=== PATIENT | female | born 1940 | race Caucasian/White ===

== ENCOUNTER → 2016-11-01 | Outpatient (CLI) | payer OTHER ==
[~2016-11-01] MED LIST: AFLI2INJ INJ; ALLO300T2 PO; AMLO10TA4 PO; ASCA500 PO; ASPEC81 PO; ATEN-173 PO; ATV5 PO; B-COCAP2 PO; BISO5TAB3 PO; CHOL100010 PO; CHOL1TAB76 PO; CLC100 PO; COQ10100 PO; CRS10 PO; CYAN500T13 PO; DICL1GEL28; MELATAB2 PO; MELO7.5T5 PO; MULT-190 PO; MULT-506 PO; OMEG10007 PO; OXYC-57 PO; OXYC1TAB3 PO; POTA1080; PRLSR20 PO; TOPICAL CREAM; magnesium; zinc
[2016-11-01 16:45] LABS: ALT/SGPT 38 U/L (12-78); AST/SGOT 28 U/L (15-37); BLOOD UREA NITROGEN 16 mg/dl (7-18); BUN/CREATININE RATIO 18.1 (10-20); CALCIUM 9.6 mg/dl (8.5-10.1); CARBON DIOXIDE 30 mmol/L (21-32); CHLORIDE 108 mmol/L (98-107); CREATININE 0.86 mg/dl (0.60-1.20); GLUCOSE 89 mg/dl (70-99); POTASSIUM 4.3 mmol/L (3.5-5.1); SODIUM 144 mmol/L (136-145)
[2016-11-01 16:48] LABS: ALB/GLOB RATIO 1.3 (0.9-2); ALKALINE PHOSPHATASE 85 U/L (45-117); CHOLESTEROL 160 mg/dl (0-200); CHOLESTEROL/HDL RATIO 3.1; HDL CHOLESTEROL 51 mg/dl; LDL CHOLESTEROL CALCULATED 64 mg/dl; TRIGLYCERIDES 224 mg/dl (0-150); VERY LOW DENSITY LIPOPROT CALC 45 mg/dl
[2016-11-02 07:34] LABS: ESTIMATED AVERAGE GLUCOSE 126 mg/dl; HA1C FLAG Normal (Normal)
== END | disposition home or self-care (01) ==
LOC: C.LAB 15:25
PROVIDERS: ATTEND General Practice
DX: E78.00 Pure hypercholesterolemia, unspecified (principal); R73.09 Other abnormal glucose; I25.10 Atherosclerotic heart disease of native coronary artery without angina pectoris; Z01.810 Encounter for preprocedural cardiovascular examination

== ENCOUNTER 2016-11-10 07:40 | Inpatient (IN) | payer OTHER ==
[2016-11-01 15:43] VITALS: BMI 33.0
--- NOTE | 2016-11-01 16:24 | PAT Medication Instructions ---
Service Date Nov 01, 2016. Current Home Medication List Aflibercept (Eylea), 1 DOSE INJ UD Allopurinol (Zyloprim), 150 MG PO Q2D Amlodipine Besylate (Norvasc), 0.5 MG PO BID Ascorbic Acid (Vitamin C *), 1,000 MG PO QDL Aspirin Enteric Coated (Ecotrin Or Generic *), 81 MG PO QAM Bisoprolol Fumarate (Zebeta), 5 MG PO QAM Cholecalciferol (D 2000), 2 TAB PO QDL Coenzyme Q10 (Ubidecarenone) (Co Q10 *), 1 CAP PO BID Cyanocobalamin (Vitamin B12 500MCG), 500 MCG PO QDL Diclofenac Sod (Voltaren 1% Top Gel), TID PRN for Pain Fish Oil ([place]-3), 1 CAP PO BID Lorazepam (Lorazepam), 1 DOSE PO UD PRN for Anxiety Melatonin (Melatonin Maximum Strengt), 1 TAB PO HS Meloxicam (Mobic), 15 MG PO QAM Multivitamin (Multivitamin), 1 TAB PO QDL Ocuvite Preservision (Ocuvite Preservision), 1 TAB PO BID Omeprazole (Prilosec Otc *), 20 MG PO QAM Potassium Citrate (Urocit-K), BID Rosuvastatin Calcium (Crestor *), 10 MG PO HS Vitamin B Cmplx/Vitc/Folic Ac (Nephrocaps), 1 CAP PO QDL [Topical Cream ], for FEET PAIN [magnesium], Unknown Dose QDL [zinc], Unknown Dose QDL Medication Instructions For Your Scheduled Surgery - Check with surgeon for instructions: Meloxicam (Mobic), 15 MG PO QAM - Check with surgeon/chart changer for instructions: Aspirin Enteric Coated (Ecotrin Or Generic *), 81 MG PO QAM - Check with prescribing physician for instructions: Aflibercept (Eylea), 1 DOSE INJ UD - Hold the following medications starting 11/01/16: Fish Oil ([place]-3), 1 CAP PO BID Coenzyme Q10 (Ubidecarenone) (Co Q10 *), 1 CAP PO BID - Hold the following medications 24 hours prior to surgery: [Topical Cream ], for FEET PAIN Diclofenac Sod (Voltaren 1% Top Gel), TID PRN for Pain - Hold the following medications the morning of surgery: [zinc], Unknown Dose QDL [magnesium], Unknown Dose QDL Vitamin B Cmplx/Vitc/Folic Ac (Nephrocaps), 1 CAP PO QDL Potassium Citrate (Urocit-K), BID Ocuvite Preservision (Ocuvite Preservision), 1 TAB PO BID Multivitamin (Multivitamin), 1 TAB PO QDL Cyanocobalamin (Vitamin B12 500MCG), 500 MCG PO QDL Cholecalciferol (D 2000), 2 TAB PO QDL Ascorbic Acid (Vitamin C *), 1,000 MG PO QDL - Take the following medications the morning of surgery with a sip of water: Omeprazole (Prilosec Otc *), 20 MG PO QAM Lorazepam (Lorazepam), 1 DOSE PO UD PRN for Anxiety Bisoprolol Fumarate (Zebeta), 5 MG PO QAM Amlodipine Besylate (Norvasc), 0.5 MG PO BID Allopurinol (Zyloprim), 150 MG PO Q2D - Take the following medications as scheduled the night before surgery: Rosuvastatin Calcium (Crestor *), 10 MG PO HS Potassium Citrate (Urocit-K), BID Ocuvite Preservision (Ocuvite Preservision), 1 TAB PO BID Melatonin (Melatonin Maximum Strengt), 1 TAB PO HS Lorazepam (Lorazepam), 1 DOSE PO UD PRN for Anxiety Amlodipine Besylate (Norvasc), 0.5 MG PO BID If you have any questions please call us at [phone] or [phone] or [phone]
[2016-11-01 16:37] LABS: BASO % 0.6 %; BASO ABS # 0.03 K/uL (0-0.2); COMPLETE YES; EOS % 8.2 %; HEMATOCRIT 40.8 % (37-47); IG% 0.2 %; LYMPH % 37.3 %; LYMPH ABS # 1.81 K/uL (1.2-3.4); MEAN CELL VOLUME 92.3 fL (80-100); MEAN CORPUSCULAR HEMOGLOBIN 30.3 pg (25-34); MEAN CORPUSCULAR HGB CONC 32.8 g/dl (32-36); MEAN PLATELET VOLUME 9.5 fL (7.4-10.4); MONO % 8.7 %; PLATELET COUNT 204 K/uL (130-400); RED BLOOD COUNT 4.42 M/uL (4.2-5.4); WHITE BLOOD COUNT 4.85 K/uL (4.8-10.8)
[2016-11-01 16:38] LABS: URINE APPEARANCE CLEAR (CLEAR); URINE BILIRUBIN NEG (NEG); URINE COLOR YELLOW; URINE NITRITE NEG (NEG); URINE SPECIFIC GRAVITY 1.009 (1.000-1.030); UROBILINOGEN NEG (NEG)
[2016-11-01 16:45] LABS: MANUAL MICROSCOPIC REQUIRED? NO; REVIEW REQ? NO
--- NOTE | 2016-11-01 17:07 | DIAGNOSTIC IMAGING REPORT ---
CHEST 2 VIEWS ROUTINE CLINICAL HISTORY: pat preoperative evaluation COMPARISON STUDY: No previous studies for comparison. FINDINGS: The bones soft tissues and hemidiaphragms are normal. The cardiomediastinal silhouette is normal. The lungs are clear. The pulmonary vasculature is normal. IMPRESSION: Negative chest. Electronically signed by: Luigi Fontanez M.D. 11/01/2016 5:05 PM Dictated Date/Time: 11/01/2016 5:05 PM
--- NOTE | 2016-11-03 11:03 | HISTORY & PHYSICAL EXAMINATION ---
DATE OF ADMISSION: 11/10/2016 CHIEF COMPLAINT: Low back pain and thigh and groin pain. HISTORY OF PRESENT ILLNESS: A 76-year-old female well known to myself having undergone prior lumbar surgery with lumbar fusion L3-L5 done in 2011. She initially did well following the surgery, but over the preceding years developed increasing back and leg pain that is worse with standing and ambulation. She could not tolerate or have epidural injections performed and failed to respond to physical therapy or oral medication. She had recent MRI that demonstrated L2-L3 spinal stenosis that was severe with facet arthrosis and neural compression. She had adequate decompression to the previously operated levels. She denied roshan incontinence or roshan weakness. She desires surgery. PAST MEDICAL HISTORY: History of coronary artery stenting, mitral valve prolapse, sleep apnea, osteoarthritis, low back pain, reflux, obesity, nephrolithiasis, basal cell carcinoma. PAST SURGICAL HISTORY: Surgery for kidney stone removal, multiple; history of fractured ankle, ORIF ankle replacement; shoulder surgery; knee surgery; appendectomy; cholecystectomy; lumbar fusion. ALLERGIES: IV DYE AND TRAMADOL. MEDICATIONS: Metoprolol, Voltaren Gel, allopurinol, Ativan, Prilosec, zinc, aspirin 81 mg, Mobic, Norvasc. FAMILY HISTORY: Diabetes, heart disease. SOCIAL HISTORY: The patient is nonsmoker, nondrinker per records. REVIEW OF SYSTEMS: She denies fevers, chills, night sweats, sleep disturbance, unintended weight loss, cough, shortness of breath. She denies angina or dyspnea on exertion. She had a recent echocardiogram done 07/2016, demonstrated ejection fraction of 60%. She had a recent stress test performed in 2015 that revealed negative graded test for ischemia. She has been cleared by her PCP for surgery. PHYSICAL EXAMINATION: GENERAL: The patient is a pleasant female, appears stated age. She stands easily, ambulates with a stooped posture and deliberate gait. She answers questions appropriately, has normal affect. NECK: Evaluation reveals full cervical range of motion with no lymphadenopathy. HEART: Auscultation of the heart reveals a regular rate and rhythm. LUNGS: Clear to auscultation bilaterally. EXTREMITIES: Evaluation of extremities reveals 5/5 strength in lower extremities in all motor groups with intact sensation to light touch but some reported slight sensory disturbance to light touch in the right anterior thigh. She has nontender hip range of motion of the thighs bilaterally and internal rotation. She has negative straight leg raise. She has palpable peripheral pulses in the lower extremities. There is no edema. She has diminished DTRs. No clonus at the ankles and lower extremities. BACK: Inspection of the spine reveals prior lumbar scar with no obvious scoliosis or spasm. ASSESSMENT AND PLAN: The patient has had prior successful lumbar fusion L3-L5 with adjacent level disease and spinal stenosis causing frequent symptoms. Given that she has been cleared medically and desires surgery and her ongoing symptoms, plan to proceed with L2-L3 decompression and extension of fusion with possible hardware removal L3-L5.
[2016-11-10] VITALS (9 sets, daily range): BP systolic 94–130; BP diastolic 53–78; PULSE 50–68; TEMP 36.3–36.5; O2SAT 95–100; Ht 154.9 cm; Wt 78.9 kg
[~2016-11-10] VITALS: Ht 154.9 cm; Wt 78.9 kg
[~2016-11-10 07:40] MED LIST changes: -ATEN-173 PO; +CEFAZOLIN 2000 MG/60 ML D5W IV SCH; -CHOL100010 PO; -CLC100 PO; +CeleBREX 200 MG CAP PO SCH; +LACTATED RINGER'S 1000ML 1,000 ML IV SCH; -OXYC-57 PO; -OXYC1TAB3 PO; +PREGABALIN 75 MG CAP PO SCH
[2016-11-10] MEDS ORDERED: MIDAZOLAM HCL 1 MG/ML 2ML VIAL ONE (08:37)
[2016-11-10] MEDS ORDERED: FENTANYL CITRATE INJ 50 MCG/1 ML 2 ML VIAL ONE (08:37)
[2016-11-10] MEDS ORDERED: HYDROmorphone INJ 2 MG/ML SYR/VIAL ONE (08:37)
--- NOTE | 2016-11-10 09:14 | History & Physical Bridge Note ---
H&P Re-Evaluation Bridge Note: I have examined the patient, reviewed the History & Physical and in the interval since the performance of the History & Physical I have noted the following changes of clinical significance: No changes noted
[2016-11-10] MEDS ORDERED: FENTANYL CITRATE INJ 50 MCG/1 ML 2 ML VIAL IV PRN (09:30)
[2016-11-10] MEDS ORDERED: EpHEDrine SULFATE INJ 50 MG/ML AMP IV PRN (09:30)
[2016-11-10] MEDS ORDERED: MoRPHine SULFATE 10 MG/ML CARP/VIAL IV PRN (09:30)
[2016-11-10] MEDS ORDERED: ONDANSETRON INJ 2 MG/ML 2 ML VIAL IV PRN ×2 (09:30→11:45)
[2016-11-10] MEDS ORDERED: ATROPINE SULFATE 0.1 MG/ML 5ML SYR IV PRN (09:30)
[2016-11-10] MEDS ORDERED: THROMBIN FOR SOLN 20000 UNIT KIT ONE (09:42)
[2016-11-10] MEDS ORDERED: BUPIVACAINE/EPINEPHRINE 0.5% MPF 1:200,000 30 ML VIAL ONE (09:43)
[2016-11-10] MEDS ORDERED: BACITRACIN 50000 UNIT VIAL ONE (09:43)
[2016-11-10] MEDS ORDERED: HEPARIN SOD (PORCINE) 1000 UNIT/ML 10 ML VIAL ONE (09:43)
[2016-11-10] MEDS ORDERED: THROMBIN 5000 UNITS KIT ONE (09:43)
[2016-11-10] MEDS ORDERED: LIDOCAINE HCL 2% 2 ML VIAL (20MG/ML) ONE (10:37)
[2016-11-10] MEDS ORDERED: ROCURONIUM BROMIDE 10 MG/ML 5 ML VIAL ONE (10:37)
[2016-11-10] MEDS ORDERED: ONDANSETRON INJ 2 MG/ML 2 ML VIAL ONE (10:37)
[2016-11-10] MEDS ORDERED: NEOSTIGMINE METHYLSULFATE 5 MG/5 ML SYR ONE (10:37)
[2016-11-10] MEDS ORDERED: PROPOFOL IV EMULSION 10 MG/ML 20 ML VIAL IV ONE (10:37)
[2016-11-10] MEDS ORDERED: DEXAMETHASONE SOD INJ 4 MG/ML VIAL ONE (10:37)
[2016-11-10] MEDS ORDERED: GLYCOPYRROLATE INJ 0.2 MG/ML VIAL ONE ×2 (10:37→12:11)
[2016-11-10] MEDS ORDERED: SODIUM CHLORIDE 0.9% INJ 10 ML VIAL ONE (10:41)
[2016-11-10] MEDS ORDERED: LARYING-O-JET KIT (LTA) ONE ×2 (10:51)
[2016-11-10] MEDS ORDERED: ACETAMINOPHEN 500 MG TAB PO PRN (11:45)
[2016-11-10] MEDS ORDERED: BISACODYL 10 MG SUPP PR PRN (11:45)
[2016-11-10] MEDS ORDERED: LORAZEPAM INJ 0.5 MG in SYRINGE 0 ML IV PRN (11:45)
[2016-11-10] MEDS ORDERED: NALOXONE HCL 0.4 MG/1 ML VIAL/CARP IV PRN (11:45)
[2016-11-10] MEDS ORDERED: METOCLOPRAMIDE HCL INJ 5 MG/ML 2 ML VIAL IV PRN (11:45)
[2016-11-10] MEDS ORDERED: MAGNESIUM HYDROXIDE SUSP 30 ML UDC PO PRN (11:45)
[2016-11-10] MEDS ORDERED: PROMETHAZINE HCL INJ 12.5 MG in SODIUM CHLORIDE 0.9% 50ML 50 ML IV PRN (11:45)
[2016-11-10] MEDS ORDERED: ALUMINUM/MAGNESIUM SUSP 30 ML UDC PO PRN (11:45)
[2016-11-10] MEDS ORDERED: SOD PHOSPHATE/SOD BIPHOSPHATE ENEMA 132 ML BTL PR PRN (11:45)
[2016-11-10] MEDS ORDERED: FAMOTIDINE 20 MG TAB PO PRN (11:45)
--- NOTE | 2016-11-10 11:45 | [facility] Post Operative Brief Note ---
Immediate Operative Summary Operative Date Nov 10, 2016. Pre-Operative Diagnosis severe L2-3 spinal stenosis with facet arthrosis and neural compression Post-Operative Diagnosis severe L2-3 spinal stenosis with facet arthrosis and neural compression Procedure(s) Performed L2-L3 Decompression Posterior Fusion, Extension of Fusion Connecting to L2, Hardware Removal, Infuse, Arteriocyte, Autograft Surgeon Dr. Robert Tse Jacker Feeder Surgeon(s) Jeremiah Srinivasan PA-C Estimated Blood Loss 150mL Findings dict Specimens A. explanted hardware
[2016-11-10] MEDS ORDERED: FLOSEAL HEMOSTATIC MATRIX 10ML TOP ONE (11:50)
--- NOTE | 2016-11-10 12:02 | DIAGNOSTIC IMAGING REPORT ---
LUMBAR SPINE, INTRAOPERATIVE FLUOROSCOPY HISTORY: L2-L3 decompression and fusion. FLUOROSCOPY TIME: 8 seconds. FINDINGS: Intraoperative fluoroscopy was provided for the lumbar spine. 2 fluoroscopic spot images were obtained. Posterior decompression fusion at L2-L5 with pedicle screws and rods. The L2-L3 decompression/fusion is new from the 2012 examination. The hardware appears intact. IMPRESSION: Fluoroscopy provided for a L2-L3 posterior decompression and fusion. Electronically signed by: Junito Kaiser M.D. 11/10/2016 12:01 PM Dictated Date/Time: 11/10/2016 12:00 PM
[2016-11-10] MEDS ORDERED: EpHEDrine SULFATE 50MG/5ML SYR ONE (12:11)
--- NOTE | 2016-11-10 13:28 | Anesthesiology Progress Note ---
Anesthesia Post Op Note Date & Time Nov 10, 2016 at 13:29 Vital Signs Pain Intensity: 2 Vital Signs Past 12 Hours Date Time Temp Pulse Resp B/P (MAP) Pulse Ox O2 Delivery O2 Flow Rate FiO2 11/10/16 12:50 50 16 115/63 100 Nasal Cannula 3 11/10/16 12:40 36.2 50 16 98/56 100 Nasal Cannula 3 11/10/16 12:30 55 16 119/57 100 Nasal Cannula 3 11/10/16 12:20 58 16 115/64 100 Mask 4 11/10/16 12:10 63 16 128/57 100 Mask 10 11/10/16 12:00 36.4 61 16 127/59 100 Mask 10 11/10/16 08:11 36.5 62 18 130/66 95 Room Air Notes Mental Status: alert / awake / arousable, participated in evaluation Pt Amnestic to Procedure: Yes Nausea / Vomiting: adequately controlled Pain: adequately controlled Airway Patency, RR, SpO2: stable & adequate BP & HR: stable & adequate Hydration State: stable & adequate Anesthetic Complications: no major complications apparent
--- NOTE | 2016-11-10 13:43 | OPERATIVE REPORT ---
DATE OF OPERATION: 11/10/2016 PREOPERATIVE DIAGNOSES: 1. Previous L3-5 instrumented fusion. 2. L2-3 spinal stenosis. 3. L2-3 degenerative disc disease. POSTOPERATIVE DIAGNOSIS: Same. PROCEDURES: 1. L2 laminectomy with bilateral L2-3 medial facetectomies. 2. Nonsegmental pedicle screw instrumentation-bilateral L2. 3. Posterolateral fusion [id number], Infuse BMP on a collagen sponge, tricalcium phosphate, local bone, bone putty, bone marrow aspirate. 4. Right iliac crest bone marrow aspiration, stem cell concentration and application of bone graft. 5. Bilateral L3-5 radha removal. SURGEON: Dr. Tse. CLEANING MAID: Jeremiah Srinivasan PA-C. Please note he participated in all portions of the procedure and was critical for performance of procedure, participated in positioning, prepping, draping, retraction, and wound closure. ANESTHESIA: General endotracheal anesthesia. COMPLICATIONS: None. ESTIMATED BLOOD LOSS: 150 mL IV FLUIDS: Per anesthesia record. PROCEDURE: After identification of the patient and operative level, she was brought to the OR where she underwent induction of general anesthesia. She was then positioned prone on Javier OR table. All bony prominences were well padded. Care was taken to avoid pressure on the periorbital area. Lumbosacral area was sterilely prepped and draped in usual fashion. Antibiotics were administered. Time-out was performed. Level was confirmed. Skin incision was infiltrated with Marcaine with epinephrine. I made skin incision from spinous process of L1-L5, exposed the posterior hardware, posterior elements out to the tips of the transverse process, explored the fusion mass. The fusion was solid from L3-5. I removed a crosslink, endcaps and rods from L3-5. Confirmed there was no motion through these segments. I then did an L2 laminectomy, removal of ligamentum flavum and bilateral L2-3 medial facetectomies. I then completed decompression with Kerrisons and confirmed the nerve roots were decompressed at L2-3 bilaterally. Following completion of decompression, I placed pedicle screws bilaterally at L2. I did have a small crack in the pedicle of L2 on the right showing first attempted screw placement. I removed this tap, identified the breech, removed any loose fragments that were next to the nerve root and then redirected the screw with an in and out and in trajectory to avoid the medial breech. This pedicle was very small in size and sustained this approach. On the left side, I was able to place a routine pedicle screw and had good purchase. Those screws were acceptably fixed in position following insertion and fluoroscopy confirmed good position. I then lowered the Antonio frame to restore lordosis and then reapplied new rods from L2-5 bilaterally. The previous screws had been Globus. Screws were placed at L2 were K2M. I applied 5.5 mm rods from L2-L5 screws, applied Globus endcaps and then Globus screws were well fixed and K2M endcaps from the K2M screws which had just been placed . I then final tightened all end caps, I placed a crosslink between L2 and 3, decorticated the endplates at L2-3 and then fusion using the transverse process of L2-3 and the fusion mass at L3-4 and then applied bone graft from L2-3 bilaterally. Bone graft consisted of the aforementioned constitutes. Please note, I did aspirate bone marrow from the right iliac crest via separate stab incision with a Jamshidi needle, concentrated with stem cell concentration system and applied to bone graft cdl company driver. Prior to bone grafting, we did irrigate with bacitracin solution. I then confirmed hemostasis and closed in layered fashion over ZHEN drain. All sponge and needle counts were correct at the end of the case. I attest to the content of the Intraoperative Record and any orders documented therein. Any exception s are noted below.
[2016-11-10] MEDS: SODIUM CHLORIDE 0.9% 1000ML 1,000 ML IV SCH (14:34)
[2016-11-10] MEDS: HYDROmorphone INJ 1 MG/ML SYR IV PRN ×2 (15:42→21:40)
[2016-11-10] MEDS: DEXAMETHASONE INJ 6 MG in SYRINGE 0 ML IV SCH (18:00)
[2016-11-10] MEDS: CEFAZOLIN IV 1,000 MG in DEXTROSE 5% 50ML 50 ML IV SCH (18:22)
[2016-11-10] MEDS: DOCUSATE SODIUM/SENNA 50/8.6MG TAB PO SCH (21:04)
[2016-11-10] MEDS: AMLODIPINE BESYLATE 5 MG TAB PO SCH (21:04)
[2016-11-11] MEDS: CEFAZOLIN IV 1,000 MG in DEXTROSE 5% 50ML 50 ML IV SCH (01:35)
[2016-11-11] MEDS: DEXAMETHASONE INJ 6 MG in SYRINGE 0 ML IV SCH ×2 (01:35→10:49)
[2016-11-11] MEDS: SODIUM CHLORIDE 0.9% 1000ML 1,000 ML IV SCH (01:35)
[2016-11-11 03:43] VITALS: BP 112/67; PULSE 59; TEMP 36.2; O2SAT 97
[2016-11-11] MEDS: HYDROmorphone INJ 1 MG/ML SYR IV PRN (03:49)
[2016-11-11] MEDS ORDERED: NURSING VERBAL MED ORDER ONE (06:00)
[2016-11-11 06:44] LABS: BASO % 0.1 %; BASO ABS # 0.01 K/uL (0-0.2); COMPLETE YES; HEMATOCRIT 31.9 % (37-47); IG% 0.2 %; LYMPH % 8.9 %; LYMPH ABS # 0.77 K/uL (1.2-3.4); MEAN CELL VOLUME 90.6 fL (80-100); MEAN CORPUSCULAR HEMOGLOBIN 29.8 pg (25-34); MEAN CORPUSCULAR HGB CONC 32.9 g/dl (32-36); MONO % 9.6 %; NEUT % 81.2 %; PLATELET COUNT 172 K/uL (130-400); RED BLOOD COUNT 3.52 M/uL (4.2-5.4); WHITE BLOOD COUNT 8.68 K/uL (4.8-10.8)
[2016-11-11 07:04] VITALS: BP 109/61; PULSE 59; TEMP 36.6; O2SAT 97
[2016-11-11 07:22] LABS: BUN/CREATININE RATIO 19.5 (10-20); CALCIUM 8.2 mg/dl (8.5-10.1); CREATININE 0.8 mg/dl (0.60-1.20); POTASSIUM 4.5 mmol/L (3.5-5.1)
--- NOTE | 2016-11-11 07:53 | Anesthesiology Progress Note ---
Anesthesia Post Op Note Date & Time Nov 11, 2016 at 07:53 Vital Signs Pain Intensity: 6.0 Vital Signs Past 12 Hours Date Time Temp Pulse Resp B/P (MAP) Pulse Ox O2 Delivery O2 Flow Rate FiO2 11/11/16 07:04 36.6 59 18 109/61 (77) 97 Room Air 11/11/16 03:43 36.2 59 16 112/67 (82) 97 Room Air 11/11/16 00:00 Room Air CPAP 11/10/16 22:50 36.3 61 16 100/61 (74) 95 CPAP 11/10/16 20:00 36.3 68 16 112/58 (76) 97 Nasal Cannula 2.0 Notes Mental Status: alert / awake / arousable, participated in evaluation Pt Amnestic to Procedure: Yes Nausea / Vomiting: adequately controlled Pain: adequately controlled Airway Patency, RR, SpO2: stable & adequate BP & HR: stable & adequate Hydration State: stable & adequate Anesthetic Complications: no major complications apparent
[2016-11-11] MEDS: OXYCODONE HCL IR 5 MG TAB (IMMEDIATE RELEASE) PO PRN ×3 (08:15→21:48)
[2016-11-11] MEDS: BISOPROLOL FUMARATE 5 MG TAB PO SCH (08:16)
[2016-11-11] MEDS: ASPIRIN 81 MG ECTAB PO SCH (08:16)
[2016-11-11] MEDS: AMLODIPINE BESYLATE 5 MG TAB PO SCH ×2 (08:17→22:06)
[2016-11-11] MEDS: PANTOprazole SOD 40 MG TAB PO SCH (08:17)
[2016-11-11] MEDS ORDERED: ALLOPURINOL 300 MG TAB PO SCH (09:00)
[2016-11-11] MEDS: LORAZEPAM 0.5 MG TAB PO PRN (10:49)
[2016-11-11 10:57] VITALS: BP 113/63; PULSE 64; TEMP 36.7; O2SAT 97
--- NOTE | 2016-11-11 11:46 | Orthopedic Progress Note ---
Orthopedic Progress Note Date of Service Nov 11, 2016. Subjective Post OP Day: 1 Reports: feeling well, pain controlled w PO medications, Denies: complaints, chest pain, SOB, nausea / vomiting, light headedness, calf pain, using OUTREACH CONSULTANT Objective calves soft nontender, N/V intact, dressing C/D/I, A&O x3, hemovac drainage Date Time Temp Pulse Resp B/P (MAP) Pulse Ox O2 Delivery O2 Flow Rate FiO2 11/11/16 10:57 36.7 64 19 113/63 (80) 97 Room Air 11/11/16 07:50 Room Air 11/11/16 07:04 36.6 59 18 109/61 (77) 97 Room Air 11/11/16 03:43 36.2 59 16 112/67 (82) 97 Room Air 11/11/16 00:00 Room Air CPAP 11/10/16 22:50 36.3 61 16 100/61 (74) 95 CPAP 11/10/16 20:00 36.3 68 16 112/58 (76) 97 Nasal Cannula 2.0 11/10/16 16:15 36.5 61 16 102/65 (77) 99 Nasal Cannula 2.0 11/10/16 15:35 97 Nasal Cannula 2.0 11/10/16 15:15 36.3 57 18 114/78 (90) 97 Nasal Cannula 2.0 11/10/16 14:15 36.5 59 16 103/53 (70) 99 Nasal Cannula 2.0 11/10/16 13:47 50 19 113/69 (84) 100 Nasal Cannula 2.0 11/10/16 13:10 Nasal Cannula 2.0 11/10/16 13:10 36.5 54 16 94/56 (69) 95 Nasal Cannula 2.0 11/10/16 13:10 Nasal Cannula 2.0 11/10/16 12:50 50 16 115/63 100 Nasal Cannula 3 11/10/16 12:40 36.2 50 16 98/56 100 Nasal Cannula 3 11/10/16 12:30 55 16 119/57 100 Nasal Cannula 3 11/10/16 12:20 58 16 115/64 100 Mask 4 11/10/16 12:10 63 16 128/57 100 Mask 10 11/10/16 12:00 36.4 61 16 127/59 100 Mask 10 Laboratory Results 24 Hours: Test 11/11/16 06:36 White Blood Count 8.68 K/uL Red Blood Count 3.52 M/uL Hemoglobin 10.5 g/dL Hematocrit 31.9 % Mean Corpuscular Volume 90.6 fL Mean Corpuscular Hemoglobin 29.8 pg Mean Corpuscular Hemoglobin Concent 32.9 g/dl Platelet Count 172 K/uL Mean Platelet Volume 9.0 fL Neutrophils (%) (Auto) 81.2 % Lymphocytes (%) (Auto) 8.9 % Monocytes (%) (Auto) 9.6 % Eosinophils (%) (Auto) 0.0 % Basophils (%) (Auto) 0.1 % Neutrophils # (Auto) 7.05 K/uL Lymphocytes # (Auto) 0.77 K/uL Monocytes # (Auto) 0.83 K/uL Eosinophils # (Auto) 0.00 K/uL Basophils # (Auto) 0.01 K/uL Assessment & Plan Assessment: stable, cant take steroids, will add toradol, d/c tomorrow?
[2016-11-11] MEDS: CYANOCOBALAMIN 500 MCG TAB (VIT B-12) PO SCH (12:47)
[2016-11-11 15:20] VITALS: BP 116/73; PULSE 59; TEMP 36.6; O2SAT 97
[2016-11-11] MEDS: KETOROLAC TROMETHAMINE 15 MG/ML VIAL IV PRN ×2 (15:33→21:47)
[2016-11-11 19:55] VITALS: BP 115/72; PULSE 60; TEMP 36.7; O2SAT 91
[2016-11-11] MEDS: DOCUSATE SODIUM/SENNA 50/8.6MG TAB PO SCH (22:07)
[2016-11-11 22:47] VITALS: BP 126/64; PULSE 66; TEMP 36.8; O2SAT 93
[2016-11-12] MEDS: OXYCODONE HCL IR 5 MG TAB (IMMEDIATE RELEASE) PO PRN ×3 (02:38→15:16)
[2016-11-12] MEDS: LORAZEPAM 0.5 MG TAB PO PRN (02:40)
[2016-11-12] MEDS: POLYETHYLENE (MIRALAX) 17 GM PACK PO SCH ×2 (05:33→12:15)
[2016-11-12 06:18] VITALS: BP 124/70; PULSE 69; TEMP 36.6; O2SAT 98
[2016-11-12 07:31] VITALS: BP 116/53; PULSE 72; TEMP 37; O2SAT 93
[2016-11-12] MEDS: PANTOprazole SOD 40 MG TAB PO SCH (07:42)
[2016-11-12] MEDS: BISOPROLOL FUMARATE 5 MG TAB PO SCH (07:42)
[2016-11-12] MEDS: AMLODIPINE BESYLATE 5 MG TAB PO SCH (07:43)
[2016-11-12] MEDS: ASPIRIN 81 MG ECTAB PO SCH (07:43)
[2016-11-12] MEDS: KETOROLAC TROMETHAMINE 15 MG/ML VIAL IV PRN (07:47)
[2016-11-12] MEDS ORDERED: ALLOPURINOL 300 MG TAB PO SCH (09:00)
[2016-11-12] MEDS ORDERED: OXYC1TAB3 PO (11:21)
--- NOTE | 2016-11-12 11:24 | Discharge Instructions ---
Discharge Instructions Date of Service Nov 12, 2016. Admission Reason for Admission: Lumbar Spinal Stenosis Discharge Discharge Diagnosis / Problem: spinal stenosis Discharge Goals Goal(s): Decrease discomfort Activity Recommendations Activity Limitations: per Instructions/Follow-up section Lifting Limitations: no more than 5 pounds . Instructions / Follow-Up Instructions / Follow-Up ACTIVITY RECOMMENDATIONS: SELF CARE INSTRUCTIONS AFTER THORACIC/LUMBAR FUSIONS 1. You may walk to your tolerance. It is good exercise for your legs and back. Expect some back and intermittent leg aches and pains. 2. You may perform "counter-top" level activities (make a sandwich, celena with a project, etc.). 3. No bending or lifting of more than 10 pounds or back twisting of any nature (roll like a log when turning in bed). 4. You may ride in a car for 20-30 minutes at a time. No driving until after your first visit with your doctor. 5. Frequent changes of position and restricting sitting to 30 minutes at a time will help limit the amount of back spasms and stiffness you may experience. 6. You may discontinue the use of ambulatory aids (cane, crutches, etc.) once your strength and confidence allow. 7. You may insurance follow up representative the shower and let water strike your incision when you arrive home at least once daily. Do not take a tub bath, sit in a hot tub or go into a swimming pool until after your first recheck in the office. SPECIAL CARE INSTRUCTIONS: VERY IMPORTANT TO READ AND REVIEW A. Your surgical incision has been closed with a cosmetic suture under the skin that will dissolve in about 6 weeks. In 14 days, you can use a pair of clean scissors and cut the suture that is left outside of the skin at the ends of your incision. 1. The small skin tapes can be removed 7 days after surgery if they have not fallen off by that point. 2. You may keep the wound open to air as much as possible to promote healing after post-op day number 5 unless told otherwise by your doctor. 3. If you think the wound looks like it is becoming infected (redness or worsening drainage) and/or you are experiencing fever, chill or worsening back pain and muscle spasms, contact the office so that we may evaluate you as soon as possible. B. Complications are uncommon, but please contact us if you have any signs or symptoms of: 1. wound infection (fever higher than 102.5 degrees F, redness, separation of wound, drainage, or increasing pain from the incision) 2. blood clots in legs (pain, swelling, redness and warmth in legs) 3. urinary tract infection (fever higher than 102.5 degrees F, burning upon urination or increased frequency of urination) 4. nerve problems (inability to walk on your toes or heels, numbness, loss of bowel or bladder control) 5. any other symptoms that concern you C. Please call the office at if you have any concerns or questions about your operation or recovery. D. No smoking! Smoking drastically decreases the chance of a solid fusion. E. Do not take any anti-inflammatory medications (Indocin, Advil, Motrin, Aspirin, Naprosyn, etc.) as these may inhibit the chance of a solid fusion. Tylenol is okay to take for pain. MANAGING PAIN AFTER SPINAL SURGERY 1. Narcotic medication is intended for short-term use and will be provided for surgical pain. Surgical pain usually lasts for a period of 4-6 weeks. Narcotic medication includes Percocet, Vicodin, Darvocet, Tylenol #3 or Lortab. 2. Longer-term pain is more appropriately treated with non-narcotic medication such as Tylenol ES. 3. Muscle spasm is not appropriately treated with narcotics. Muscle relaxers such as Soma, Flexeril or Skelaxin can be used along with Tylenol ES. 4. Remember that we all live with some "aches and pains". This is not unusual or uncommon after an injury or as we get older. a. Back pain is expected and may include muscle spasms for 4 to 6 weeks after surgery. The pain should gradually improve. If the pain worsens for no apparent reason, please contact the office. b. Intermittent leg pain may also be experienced and should not be concerned about unless it worsens for no apparent reason. If so, please contact the office. 5. We will provide appropriate medication within the normal guidelines of their prescribed use. We will also be very cautious and aware of potential abuse and extended duration of patients' medication needs. a. Pain medications are for your comfort and to assist with sleep and rest so that the tissue can heal. They are not provided in order to return to normal activity and should not be used through the day. To do so or worsening pain at night can result from ongoing tissue damage and development of tolerance to the prescribed medicine. 6. Please allow 2-3 days to process refills. Prescriptions will not be mailed but must be picked up at the office. FOLLOW UP VISIT: Keep your scheduled follow-up appointment. Any questions, please call the office at . Current Hospital Diet Patient's current hospital diet: Regular Diet Discharge Diet Recommended Diet: Regular Diet Procedures Procedures Performed: L2-L3 Decompression Posterior Fusion, Extension of Fusion Connecting to L2, Hardware Removal, Infuse, Arteriocyte, Autograft Pending Studies Studies pending at discharge: no Laboratory Results Hemoglobin A1c Test 11/01/16 16:11 Range/Units Estimated Average Glucose 126 mg/dl Hemoglobin A1c 6.0 H 4.5-5.6 % Lipid Panel Test 11/01/16 16:11 Range/Units Triglycerides Level 224 H 0-150 mg/dl Cholesterol Level 160 0-200 mg/dl HDL Cholesterol 51 mg/dl Cholesterol/HDL Ratio 3.1 LDL Cholesterol, Calculated 64 mg/dl Medical Emergencies . Who to Call and When: Medical Emergencies: If at any time you feel your situation is an emergency, please call 911 immediately. . Non-Emergent Contact Non-Emergency issues call your: Surgeon Call Non-Emergent contact if: wound has increased drainage, wound has increased redness, wound has increased pain . "Provider Documentation" section prepared by Miguel Luna. . VTE Core Measure Inpt VTE Proph given/why not?: John Lange
[2016-11-12 12:03] VITALS: BP 116/53; PULSE 72; TEMP 37; O2SAT 93
[2016-11-12 12:30] VITALS: O2SAT 93
[2016-11-12] MEDS: CYANOCOBALAMIN 500 MCG TAB (VIT B-12) PO SCH (12:46)
--- NOTE | 2016-11-12 14:46 | PROGRESS NOTE ---
DATE: 11/12/2016 SUBJECTIVE: Ms. Armijo is here postoperative day #2. She states she is doing okay this morning. She is still having a bit of in the way of back pain, has had to use her oral pain medication. She is tolerating p.o. just fine. She has been up and walking with physical therapy and has done laps around the nurses' station and at this point would like to go home. PHYSICAL EXAMINATION: VITAL SIGNS: She is afebrile. Vital signs are stable. ZHEN drain is in place and has placed 30 mL out this shift. ABDOMEN: Soft and nontender. EXTREMITIES: Calves are supple and nontender. Dressing is clean, dry, and intact. ASSESSMENT: Patient is stable postop day #2. PLAN: At this point, she is doing well. She would like to go home, which I believe is reasonable. Reviewed her discharge instructions, her medications and restrictions. She is to follow up with our office in approximately 2 weeks or sooner if she develops any increased pain, fevers, chills or drainage from the incision.
--- NOTE | 2016-11-16 10:05 | Discharge Summary ---
Orthopedic Discharge Summary Admission Date/Reason Nov 10, 2016 at 09:30 Lumbar Spinal Stenosis. Discharge Date/Disposition Nov 12, 2016 Home Diagnosis Principal Diagnosis: same Procedure(s) Performed lumbar decompression/fusion Medication Reconciliation New Medications: Oxycodone Immediate Rel Tab (Roxicodone Ir) 5 Mg Tab 1-2 TAB PO Q4H PRN for Severe Pain, #90 TAB Continued Medications: Aflibercept (Eylea) 2 Mg/0.05 Ml Inj 1 DOSE INJ UD RECEIVES EVERY 6 WEEKS ...FOR FORM OF RETINOPATHY / MACULAR DEGENERATION... Allopurinol (Zyloprim) 300 Mg Tab 150 MG PO Q2D, TAB ROTATES 300MG ONE DAY, 150 NEXT DAY.... Amlodipine Besylate (Norvasc) 10 Mg Tab 0.5 MG PO BID, TAB Ascorbic Acid (Vitamin C *) 500 Mg Tab 1000 MG PO QDL, TAB Aspirin Enteric Coated (Ecotrin Or Generic *) 81 Mg Ectab 81 MG PO QAM PT ENCOURAGED TO VERIFY WITH SURGEON INSTRUCTIONS FOR PRE OP PURPOSE Bisoprolol Fumarate (Zebeta) 5 Mg Tab 5 MG PO QAM, TAB Cholecalciferol (D 2000) 2,000 Unit Tab 2 TAB PO QDL Coenzyme Q10 (Ubidecarenone) (Co Q10 *) 100 Mg Cap 1 CAP PO BID, CAP Cyanocobalamin (Vitamin B12 500MCG) 500 Mcg Tab 500 MCG PO QDL, TAB Diclofenac Sod (Voltaren 1% Top Gel) Gel TID PRN for Pain Fish Oil ([place]-3) 1 Ea Cap 1 CAP PO BID, CAP Lorazepam (Lorazepam) 0.5 Mg Tab 1 DOSE PO UD PRN for Anxiety Melatonin (Melatonin Maximum Strengt) 5 Mg Tab 1 TAB PO HS for 30 Days, #30 TAB 1 Refill Multivitamin (Multivitamin) Tab 1 TAB PO QDL, TAB Ocuvite Preservision (Ocuvite Preservision) 1 Tab Tab 1 TAB PO BID, TAB Omeprazole (Prilosec Otc *) 20 Mg Tabcr 20 MG PO QAM Potassium Citrate (Urocit-K) 10 Meq Tab BID Rosuvastatin Calcium (Crestor *) 10 Mg Tab 10 MG PO HS, TAB Vitamin B Cmplx/Vitc/Folic Ac (Nephrocaps) 1 Cap Cap 1 CAP PO QDL, CAP [magnesium] () Unknown Strength Unknown Dose QDL [Topical Cream ] () PRN for FEET PAIN TOPIR/CELECOX/GABAP/LIDOC(28G), 2.5/2/6/3 - APPLY 1-2 PUMPS TO AFFECTED AREA 3-4 X DAILY PRN [zinc] () Unknown Strength Unknown Dose QDL Discontinued Medications: Meloxicam (Mobic) 7.5 Mg Tab 15 MG PO QAM, TAB PT ENCOURAGED TO CONTACT DR VELÁZQUEZ OFFICE FOR PRE OP INSTRUCTIONS Admission Physical Exam As per Admitting History & Physical. Hospital Course The patient was admitted for elective lumbar surgery and tolerated the procedure without complication. They were transferred to the floor where they showed adequate pain control, mobility, and had return of bowel function. They were discharged in stable condition. Discharge Instructions Please refer to the electronic Patient Visit Report (Discharge Instructions) for additional information.
== END 2016-11-12 15:45 | disposition home or self-care (01) | DRG 460 ==
LOC: C.ACU 07:40 → C.MSN 09:30 → ENRESERV 12:44
PROVIDERS: ADMIT Orthopaedic Surgery Orthopaedic Surgery of the Spine; ATTEND Orthopaedic Surgery Orthopaedic Surgery of the Spine
PROC: 0SG0071 Fusion of Lumbar Vertebral Joint with Autologous Tissue Substitute, Posterior Approach, Posterior Column, Open Approach (ICD-10-PCS; principal; 2016-11-10 09:00)
PROC: 0SP00AZ Removal of Interbody Fusion Device from Lumbar Vertebral Joint, Open Approach (ICD-10-PCS; principal; 2016-11-10 09:00)
DX: M48.06 Spinal stenosis, lumbar region (principal); M51.36 Other intervertebral disc degeneration, lumbar region; K21.9 Gastro-esophageal reflux disease without esophagitis; E66.9 Obesity, unspecified; Z68.32 Body mass index [BMI] 32.0-32.9, adult; Z79.82 Long term (current) use of aspirin; Z79.899 Other long term (current) drug therapy; Z95.5 Presence of coronary angioplasty implant and graft; Z98.1 Arthrodesis status

== ENCOUNTER 2020-02-11 08:37 | Inpatient (IN) ==
--- NOTE | 2020-01-08 14:13 | Anesthesiology Consultation ---
Date of Service January 08, 2020 Assessment & Plan (1) Encounter for pre-operative examination: COVID Status: As of 01/07 assessment, patient denies travel to endemic area, known exposure/sick contacts in the past 30 days (pt was exposed to asymptomatic COVID + people at a family reunion > 1 month ago; she never developed symptoms) or symptoms of COVID19. Patient instructed that they and their household members must follow strict social distancing guidelines, wear a mask in public and avoid travel for 14 days prior to surgery. Preoperative COVID19 testing to be completed prior to surgery per surgeon's arrangements. Patient made aware to self-isolate as much as possible between COVID testing and surgery. CASE CANCELED. Chart Review Chart Review: Acceptable Risk for Surgery (pending PCP clearance 01/09 and cardio appointment 01/14) and Patient seen in Pre Admission Testing Teaching & Discussion Instructed NPO after midnight before surgery, except medications with 15 cc of water. Medication instructions provided according to the PAT guidelines. History Surgery Operation Date: 01/23/20 11:25 Proposed Procedures p L5-S1 Decompression and Fusion, L2-L5 Hardware Removal, Spinal Cord Monitoring - Magno Toledo, Height/Weight Height: 5 ft 1 in Weight: 80.7 kg Allergies Allergy/AdvReac Type Severity Reaction Status Date / Time adhesive Allergy Intermediate Redness of Verified 01/07/20 15:27 Skin Iodinated Contrast Media Allergy Unknown HIVES Verified 01/07/20 15:25 citalopram [From Celexa] AdvReac Mild didnt feel Verified 01/07/20 15:26 well on this tramadol AdvReac Unknown WEAKNESS Verified 01/07/20 15:25 Medications Home Medications Medication Instructions Recorded Confirmed Last Taken allopurinol 150 mg PO Q OTHER DAY 01/07/20 01/07/20 Unknown allopurinol 300 mg PO Q OTHER DAY 01/07/20 01/07/20 Unknown amlodipine [Norvasc] 5 mg PO PM 01/07/20 01/07/20 Unknown ascorbic acid (vitamin C) [Vitamin 1,000 mg PO PM 01/07/20 01/07/20 Unknown C] atenolol 25 mg PO BID 01/07/20 01/07/20 Unknown cholecalciferol (vitamin D3) 50 mcg PO PM 01/07/20 01/07/20 Unknown [Vitamin D3] coenzyme Q10 [Co Q-10] 10 mg PO BID 01/07/20 01/07/20 Unknown cyanocobalamin (vitamin B-12) 1,000 mcg PO PM 01/07/20 01/07/20 Unknown famotidine 20 mg PO HS 01/07/20 01/07/20 Unknown fish,bora,flax oils-om3,6,9no1 1 cap PO BID 01/07/20 01/07/20 Unknown [[place] 3-6-9] flunisolide 2 spray INTRANASAL QAM 01/07/20 01/07/20 Unknown gabapentin 300 mg PO TID 01/07/20 01/07/20 Unknown magnesium 500 mg PO PM 01/07/20 01/07/20 Unknown melatonin 5 mg PO HS 01/07/20 01/07/20 Unknown multivitamin 1 tab PO PM 01/07/20 01/07/20 Unknown omeprazole magnesium [Prilosec OTC] 20 mg PO QAM 01/07/20 01/07/20 Unknown potassium citrate 2,160 mg PO BID 01/07/20 01/07/20 Unknown prednisone 7.5 mg PO Q OTHER DAY 01/07/20 01/07/20 Unknown prednisone 10 mg PO Q OTHER DAY 01/07/20 01/07/20 Unknown propylene glycol [Systane Balance] 1 drp OPHTHALMIC (EYE) BID PRN 01/07/20 01/07/20 Unknown rosuvastatin [Crestor] 10 mg PO PM 01/07/20 01/07/20 Unknown vit C,L-Jv-myusk-lutein-zeaxan 1 tab PO BID 01/07/20 01/07/20 Unknown [PreserVision AREDS-2] vitamin B complex-folic acid [B 1 tab PO PM 01/07/20 01/07/20 Unknown Complex 1 (with folic acid)] zinc 50 mg PO PM 01/07/20 01/07/20 Unknown L. acidophilus-L. rhamnosus 1 cap PO HS 01/10/20 01/10/20 Unknown [Probiotic] acetaminophen [Tylenol Extra 500 mg PO Q6H PRN 01/10/20 01/10/20 Unknown Strength] aspirin 81 mg PO QAM 01/10/20 01/10/20 Unknown docusate sodium 200 mg PO HS 01/10/20 01/10/20 Unknown polyethylene glycol 3350 [Miralax] 17 g PO DAILY PRN 01/10/20 01/10/20 Unknown Past Medical History Medical History CAD (coronary artery disease) s/p 1 stent 2005 DDD (degenerative disc disease) DVT (deep venous thrombosis) RIGHT LEG > 1994 > POST OP GERD (gastroesophageal reflux disease) Hyperlipidemia Hypoparathyroidism Mitral valve prolapse atenolol for this not htn Osteoarthritis PMR (polymyalgia rheumatica) Prednisone daily Sleep apnea cpap Slow to wake up after anesthesia Temporal arteritis RIGHT SIDE Tremor Exercise / Class Metabolic Activity III < 4 Walking/Shop/Light housework (limited by lumbar radiculopathy, some mild JIMENEZ with steps, denies CP or SOB with ambulation on one level) Past Family History Family History Mother Diabetes Father Diabetes Sister Diabetes Brother Diabetes Brother Diabetes Brother Diabetes Brother Diabetes Past Surgical History Surgical History Fusion of spine LUMBAR X2 H/O parathyroidectomy History of appendectomy History of arthroscopy RIGHT KNEE History of arthroscopy LEFT SHOULDER History of bilateral tubal ligation History of cardiac cath august 2005 History of cholecystectomy History of colonoscopy History of dilatation and curettage History of fracture of left ankle WITH REPAIR History of fracture of right ankle WITH REPAIR History of heart artery stent august 2005> 1 stent History of lithotripsy 1995 History of tooth extraction History of total replacement of left ankle Hx of bilateral cataract extraction Hx of lymph node excision DURING PARATHYROIDECTOMY Kidney stones 1964/1974/1994 > WITH OPEN SURGICAL REPAIR BILAT AT DIFFERENT TIMES Past Anesthesia History No Family Hx of Anesthesia Complications Occ wakes up crying. History of PONV No Hx of PONV and No Hx of Motion Sickness Social History Smoking Status: Never smoker Do You Dip or Chew Tobacco: No Hx Alcohol Use: No Hx Substance Use: No substance use type: does not use Review of Systems Pt denies any recent chest pain, shortness of breath, cough, fever, URI, or uncontrolled acid reflux. +palpitations Physical Exam Vital Signs BP: 133/77 P: 68bpm SPO2: 94% RA T: 98.7 F R: 16 ENMT Mouth: + small oral opening; no dental restorations, no chipped teeth and no loose teeth Thyromental Distance: > or= 3.5 Finger Breadths (3.5) Mallampati Class: III Neck normal visual inspection; neck extension not limited Respiratory normal respiratory effort Auscultation: lungs clear to auscultation bilaterally Cardiovascular Rate/Rhythm: regular rate and regular rhythm Heart Sounds: no murmur Vessels: no carotid bruit Testing Laboratory Results 01/08/20 14:47 01/08/20 14:47 PT 10.3 Seconds (9.0-12.0) 01/08/20 14:47 INR 1.0 (0.9-1.1) 01/08/20 14:47 APTT 25.6 Seconds (21.0-31.0) 01/08/20 14:47 Urine Color Yellow 01/08/20 14:47 Urine Appearance Clear (Clear) 01/08/20 14:47 Urine pH 7.5 (4.5-7.5) 01/08/20 14:47 Ur Specific [place] 1.007 (1.000-1.030) 01/08/20 14:47 Urine Protein Negative (Negative) 01/08/20 14:47 Urine Glucose (UA) Negative (Negative) 01/08/20 14:47 Urine Ketones Negative (Negative) 01/08/20 14:47 Urine Nitrite Negative (Negative) 01/08/20 14:47 Ur Leukocyte Esterase Negative (Negative) 01/08/20 14:47 Blood Type A Positive 01/08/20 14:47 Antibody Screen NEGATIVE 01/08/20 14:47 Electrocardiogram Date: 07/16/19 Findings: + NSR @ (63bpm) Chest X-Ray Date: 01/08/20 Findings: + NAD Mild cardiac enlargement.
--- NOTE | 2020-01-08 14:19 | PAT Medication Instructions ---
Medication Instructions Date of Service January 08, 2020 Home Medications allopurinol 150 mg PO Q OTHER DAY allopurinol 300 mg PO Q OTHER DAY amlodipine [Norvasc] 5 mg PO PM ascorbic acid [Vitamin C] 1,000 mg PO PM atenolol 25 mg PO BID cholecalciferol (vitamin D3) [Vitamin D3] 50 mcg PO PM coenzyme Q10 [Co Q-10] 10 mg PO BID cyanocobalamin (vitamin B-12) 1,000 mcg PO PM famotidine 20 mg PO HS fish,bora,flax oils-om3,6,9no1 [[place] 3-6-9] 1 cap PO BID flunisolide 2 spray INTRANASAL QAM gabapentin 300 mg PO TID magnesium 500 mg PO PM melatonin 5 mg PO HS multivitamin 1 tab PO PM omeprazole magnesium [Prilosec OTC] 20 mg PO QAM potassium citrate 2,160 mg PO BID prednisone 7.5 mg PO Q OTHER DAY prednisone 10 mg PO Q OTHER DAY propylene glycol [Systane Balance] 1 drp OPHTHALMIC (EYE) BID PRN rosuvastatin [Crestor] 10 mg PO PM [PreserVision AREDS-2] 1 tab PO BID vitamin B complex-folic acid [B Complex 1 (with folic acid)] 1 tab PO PM zinc 50 mg PO PM STOP taking 2 weeks before surgery If surgery is within 2 weeks, stop taking as soon as possible. coenzyme Q10 [Co Q-10] 10 mg PO BID fish,bora,flax oils-om3,6,9no1 [[place] 3-6-9] 1 cap PO BID [PreserVision AREDS-2] 1 tab PO BID DO NOT take the morning of surgery potassium citrate 2,160 mg PO BID Take morning of surgery With a small sip of water, OTHERWISE NOTHING TO EAT OR DRINK AFTER MIDNIGHT: allopurinol 150 mg PO Q OTHER DAY allopurinol 300 mg PO Q OTHER DAY atenolol 25 mg PO BID flunisolide 2 spray INTRANASAL QAM gabapentin 300 mg PO TID omeprazole magnesium [Prilosec OTC] 20 mg PO QAM prednisone 7.5 mg PO Q OTHER DAY prednisone 10 mg PO Q OTHER DAY propylene glycol [Systane Balance] 1 drp OPHTHALMIC (EYE) BID PRN (if needed) Take evening before surgery amlodipine [Norvasc] 5 mg PO PM ascorbic acid [Vitamin C] 1,000 mg PO PM atenolol 25 mg PO BID cholecalciferol [Vitamin D3] 50 mcg PO PM cyanocobalamin (vitamin B-12) 1,000 mcg PO PM famotidine 20 mg PO HS gabapentin 300 mg PO TID magnesium 500 mg PO PM melatonin 5 mg PO HS multivitamin 1 tab PO PM potassium citrate 2,160 mg PO BID propylene glycol [Systane Balance] 1 drp OPHTHALMIC (EYE) BID PRN (if needed) rosuvastatin [Crestor] 10 mg PO PM vitamin B complex-folic acid [B Complex 1 (with folic acid)] 1 tab PO PM zinc 50 mg PO PM Other Notes If you have any questions please call us at [phone] or [phone] or [phone] or [phone]
--- NOTE | 2020-01-08 15:04 | XRay Report ---
TWO VIEW CHEST CLINICAL HISTORY: Preoperative examination. FINDINGS: PA and lateral chest radiographs are compared to study dated 12/28/2011. Surgical clips proj ect over the thoracic inlet. The heart is mildly enlarged. The pulmonary vasculature is noncongested. The lungs and pleural spaces are clear. There is no pneumothorax. The skeletal structures are osteo penic. The bony thorax appears intact. Fusion hardware is noted in the lumbar spine. Cholecystectomy clips are seen in the right upper quadrant. IMPRESSION: Mild cardiac enlargement with no active disease in the chest. ACT 112: Negative or not required by law. Electronically signed by: Brad Colindres M.D. 01/08/2020 3:02 PM
[2020-01-08 16:24] LABS: Basophils # (auto) 0.01 K/uL (0-0.2); Basophils % (auto) 0.2 %; Eosinophils # (auto) 0.01 K/uL (0-0.5); Eosinophils % (auto) 0.2 %; Hematocrit (blood only) 41.8 % (37-47); Hemoglobin 13.7 g/dL (12.0-16.0); Immature Granulocytes # (auto) 0.02 K/uL (0.00-0.02); Immature Granulocytes % (auto) 0.4 %; Lymphocytes # (auto) 0.76 K/uL (1.2-3.4); Lymphocytes % (auto) 14.3 %; Mean Corpuscular Hemoglobin 31.1 pg (25-34); Mean Corpuscular Hgb Conc 32.8 g/dL (32-36); Monocytes # (auto) 0.17 K/uL (0.11-0.59); Monocytes % (auto) 3.2 %; Neutrophils # (auto) 4.33 K/uL (1.4-6.5); Neutrophils % (auto) 81.7 %; Platelet Count 212 K/uL (130-400); RDW Coefficient of Variation 14.1 % (11.5-14.5); RDW Standard Deviation 48.9 fL (36.4-46.3)
[2020-01-08 16:31] LABS: Appearance Urine Clear (Clear); Bilirubin Urine Negative (Negative); Blood Urine Negative (Negative); Color Urine Yellow; Glucose Urine UA Negative (Negative); Ketones Urine Negative (Negative); Leukocyte Esterase Urine Negative (Negative); Nitrite Urine Negative (Negative); Protein Urine Negative (Negative); Specific Gravity Urine 1.007 (1.000-1.030); Urobilinogen Urine Negative (Negative); pH Urine 7.5 (4.5-7.5)
[2020-01-08 16:32] LABS: BUN Creatinine Ratio 13.8 (10-20); Calcium 8.7 mg/dl (8.5-10.1); Creatinine Clr Calc Pharmacy 44.5 ml/min; Est GFR (African American) 63.9; Est GFR (Non-African American) 55.2; Potassium 4.8 mmol/L (3.5-5.1)
[2020-01-08 16:34] LABS: Partial Thromboplastin Ratio 0.9; Partial Thromboplastin Time 25.6 Seconds (21.0-31.0); Prothrombin Time 10.3 Seconds (9.0-12.0)
[~2020-02-11 08:37] MED LIST changes: +ACETAMINOPHEN 500 MG TAB PO SCH; -AFLI2INJ INJ; -ALLO300T2 PO; -AMLO10TA4 PO; -ASCA500 PO; -ASPEC81 PO; -ATV5 PO; -B-COCAP2 PO; -BISO5TAB3 PO; -CEFAZOLIN 2000 MG/60 ML D5W IV SCH; +CEFAZOLIN 2000MG 2,000 MG/15 ML SYR IV SCH; -CHOL1TAB76 PO; -COQ10100 PO; -CRS10 PO; -CYAN500T13 PO; -DICL1GEL28; +GABAPENTIN 300 MG CAP PO SCH; -LACTATED RINGER'S 1000ML 1,000 ML IV SCH; +LR 15ML/HR IV SCH; -MELATAB2 PO; -MELO7.5T5 PO; -MULT-190 PO; -MULT-506 PO; -OMEG10007 PO; -POTA1080; -PREGABALIN 75 MG CAP PO SCH; -PRLSR20 PO; -TOPICAL CREAM; -magnesium; -zinc
--- NOTE | 2020-02-11 10:09 | History & Physical Bridge Note ---
Date of Service February 11, 2020 History & Physical Bridge Note I have examined the patient, reviewed the History & Physical and in the interval since the performance of the History & Physical I have noted the following changes of clinical significance: no changes noted
--- NOTE | 2020-02-11 10:10 | History & Physical Report ---
Date of Service February 11, 2020 Assessment & Plan (1) Neurogenic claudication due to lumbar spinal stenosis: Admission and Anticipated Discharge Date Admission Date: L5-S1 decompression fusion, L2-L5 hardware removal History of Present Illness Chief Complaint: Back and right leg pain Primary Care Provider: Manuel Winters This is a 79-year-old female known to me that presents with chronic significant right leg pain that is been unremitting in nature. Subsequently she is here for surgical intervention. Allergies Allergy/AdvReac Type Severity Reaction Status Date / Time adhesive Allergy Intermediate Redness of Verified 02/11/20 09:08 Skin Iodinated Contrast Media Allergy Unknown HIVES Verified 02/11/20 09:08 citalopram [From Celexa] AdvReac Mild didnt feel Verified 02/11/20 09:08 well on this tramadol AdvReac Unknown WEAKNESS Verified 02/11/20 09:08 Home Medications Home Medications Medication Instructions Recorded Confirmed Type allopurinol 150 mg PO Q OTHER DAY 01/07/20 02/11/20 History allopurinol 300 mg PO Q OTHER DAY 01/07/20 02/11/20 History amlodipine [Norvasc] 5 mg PO PM 01/07/20 02/11/20 History ascorbic acid (vitamin C) [Vitamin 1,000 mg PO PM 01/07/20 01/07/20 History C] atenolol 25 mg PO BID 01/07/20 02/11/20 History cholecalciferol (vitamin D3) 50 mcg PO PM 01/07/20 02/11/20 History [Vitamin D3] coenzyme Q10 [Co Q-10] 10 mg PO BID 01/07/20 02/11/20 History cyanocobalamin (vitamin B-12) 1,000 mcg PO PM 01/07/20 02/11/20 History famotidine 20 mg PO HS 01/07/20 02/11/20 History fish,bora,flax oils-om3,6,9no1 1 cap PO BID 01/07/20 02/11/20 History [[place] 3-6-9] flunisolide 2 spray INTRANASAL QAM 01/07/20 02/11/20 History gabapentin 300 mg PO TID 01/07/20 02/11/20 History magnesium 500 mg PO PM 01/07/20 02/11/20 History melatonin 5 mg PO HS 01/07/20 02/11/20 History multivitamin 1 tab PO PM 01/07/20 02/11/20 History omeprazole magnesium [Prilosec OTC] 20 mg PO QAM 01/07/20 02/11/20 History potassium citrate 2,160 mg PO BID 01/07/20 02/11/20 History prednisone 5 mg PO Q OTHER DAY 01/07/20 02/11/20 History prednisone 7.5 mg PO Q OTHER DAY 01/07/20 02/11/20 History propylene glycol [Systane Balance] 1 drp OPHTHALMIC (EYE) BID PRN 01/07/20 02/11/20 History rosuvastatin [Crestor] 10 mg PO PM 01/07/20 02/11/20 History vit C,G-Aj-lynbc-lutein-zeaxan 1 tab PO BID 01/07/20 02/11/20 History [PreserVision AREDS-2] vitamin B complex-folic acid [B 1 tab PO PM 01/07/20 02/11/20 History Complex 1 (with folic acid)] zinc 50 mg PO PM 01/07/20 02/11/20 History L. acidophilus-L. rhamnosus 1 cap PO HS 01/10/20 02/11/20 History [Probiotic] acetaminophen [Tylenol Extra 500 mg PO Q6H PRN 01/10/20 02/11/20 History Strength] aspirin 81 mg PO QAM 01/10/20 02/11/20 History docusate sodium 200 mg PO HS 01/10/20 02/11/20 History polyethylene glycol 3350 [Miralax] 17 g PO DAILY PRN 01/10/20 02/11/20 History Past Med/Surg History Medical History CAD (coronary artery disease) s/p 1 stent 2005 DDD (degenerative disc disease) DVT (deep venous thrombosis) RIGHT LEG > 1994 > POST OP GERD (gastroesophageal reflux disease) Hyperlipidemia Hypoparathyroidism Mitral valve prolapse atenolol for this not htn Osteoarthritis PMR (polymyalgia rheumatica) Prednisone daily Sleep apnea cpap Slow to wake up after anesthesia Temporal arteritis RIGHT SIDE Tremor Surgical History Fusion of spine LUMBAR X2 H/O parathyroidectomy History of appendectomy History of arthroscopy RIGHT KNEE History of arthroscopy LEFT SHOULDER History of bilateral tubal ligation History of cardiac cath august 2005 History of cholecystectomy History of colonoscopy History of dilatation and curettage History of fracture of left ankle WITH REPAIR History of fracture of right ankle WITH REPAIR History of heart artery stent august 2005> 1 stent History of lithotripsy 1995 History of tooth extraction History of total replacement of left ankle Hx of bilateral cataract extraction Hx of lymph node excision DURING PARATHYROIDECTOMY Kidney stones 1964/1974/1994 > WITH OPEN SURGICAL REPAIR BILAT AT DIFFERENT TIMES Family History Mother Diabetes Father Diabetes Sister Diabetes Brother Diabetes Brother Diabetes Brother Diabetes Brother Diabetes Social History Smoking Status: Never smoker Second Hand Exposure: No; Do You Dip or Chew Tobacco: No; Tobacco Cessation Education Requested by Patient: No Hx Alcohol Use: No Hx Substance Use: No Preferred Language: Azeri Communication Ability: Effective Cyber Forensic Specialist Required: No Beliefs That Will Affect Care: None Current Living Situation: Alone Current Living Situation Comment: DAUGHTER LIVES BESIDE HER Other Information That Helps Us Care for You: No Feels Safe at Home: Yes Safety Concerns: Feels Safe At This Time Physical Exam Physical Exam: Patient is alert and oriented neurologically intact. Heart regular rate and rhythm. Lungs clear to auscultation. Results & Data ([facility]) Vital Signs (Past 12 Hours) Vital Signs Temp Pulse Resp BP Pulse Ox 02/11/20 09:18 36.8 C 64 18 169/78 H 97
[2020-02-11] MEDS ORDERED: ATROPINE SULFATE 0.1 MG/ML 10ML SYR IV PRN (10:12)
[2020-02-11] MEDS ORDERED: ePHEDrine sulfate 50 MG/ML AMP IV PRN (10:12)
[2020-02-11] MEDS ORDERED: ONDANSETRON INJ 2 MG/ML 2 ML VIAL IV PRN ×2 (10:12→14:24)
[2020-02-11] MEDS ORDERED: BUPIVACAINE/EPINEPHRINE 0.25% 1:200,000 30 ML VIAL ONE (10:25)
[2020-02-11] MEDS ORDERED: BACITRACIN INJ 50,000 UNIT VIAL ONE (10:25)
[2020-02-11] MEDS ORDERED: PROPOFOL IV EMULSION 10 MG/ML 20 ML VIAL IV ONE (10:30)
[2020-02-11] MEDS ORDERED: fentaNYL citrate 100 MCG/2 ML VIAL ONE ×2 (10:30→10:31)
[2020-02-11] MEDS ORDERED: LIDOCAINE 2% 20 MG/ML 5 ML SYR IV ONE (10:30)
[2020-02-11] MEDS ORDERED: ROCURONIUM BROMIDE 10 MG/ML 5 ML VIAL IV ONE (10:30)
[2020-02-11] MEDS ORDERED: HYDROmorphone INJ 2 MG/ML SYR/VIAL ONE (10:31)
[2020-02-11] MEDS ORDERED: ePHEDrine sulfate 50 MG/ML SYR ONE (12:14)
[2020-02-11] MEDS ORDERED: GLYCOPYRROLATE 0.2 MG/ML VIAL ONE (12:14)
[2020-02-11] MEDS ORDERED: NEOSTIGMINE METHYLSULFATE 1 MG/ML 10ML VIAL ONE (12:14)
[2020-02-11] MEDS ORDERED: ONDANSETRON INJ 2 MG/ML 2 ML VIAL ONE (12:14)
[2020-02-11] MEDS ORDERED: FLOSEAL HEMOSTATIC MATRIX 10ML TOP ONE (12:45)
--- NOTE | 2020-02-11 12:54 | Operative Report ---
Post Operative Report Pre & Post Diagnosis Operation Date: 01/23/20 11:25 <No data on this case meets the specified criteria> Operation Date: 02/11/20 10:05 Pre-Op Diagnosis: Spinal Stenosis with with Neurogenic Claudication L5-S1; Previous Fusion L2-L5 Post-Op Diagnosis: Spinal Stenosis with with Neurogenic Claudication L5-S1; Previous Fusion L2-L5 I identified the patient and participated in the time-out.: Yes Procedure Operation Date: 01/23/20 11:25 <No data on this case meets the specified criteria> Operation Date: 02/11/20 10:05 Actual Procedures #1 removal of posterior segmental instrumentation L2-L5. #2 exploration of fusion L2-L5. #3 lumbar decompression with bilateral medial facetectomies and foraminotomies L5-S1. #4 posterior spinal fusion L5-S1. #5 placement of posterior instrumentation L5-S1. #6 interbody fusion L5-S1. #7 placement peek cage 12 x 22 mm at L5-S1. #8 placement locally harvested morselized autograft in the posterior lateral gutters. #9 placement infuse collagen sponge, master graft in the posterior lateral gutters and ostial amp and interbody space. Surgeon Magno Toledo, DO Watch Guard Gate Pippa Gaona Estimated Blood Loss 150 Findings Consistent with Post-Op Diagnosis Specimens None Indications This is a 79-year-old female presents with significant back and leg pain after failing course of nonoperative care is here for surgical invention. Description of Procedure Patient was met with identified informed consent obtained. Patient was then taken to the operative suite underwent an patient placed in a prone position on the Javier table on top of the Antonio frame. All bony prominences well-padded eyes inspected to ensure no external pressure placed upon them. This point the lumbar spine was prepped and draped in the normal sterile fashion. Sharp dissection with the assistance of Bovie cautery was performed down to and exposing the instrumentation at L2 L3-L4-L5 bilaterally as well as the lamina and sacral ala of L5. I then proceeded move the hardware bilaterally exploring the fusion mass noting to be mature and intact. Then performed a complete laminectomy of L5 including bilateral medial facetectomies and foraminotomies addressing severe spinal stenosis. Pedicle screws were then placed in L5 and S1 levels bilaterally with assistance of fluoroscopy and appropriate size radha placed. By way of a transforaminal approach on the right a complete discectomy of L5-S1 was performed endplates curetted to subcortical bleeding bone and a 12 x 22 mm peek cage filled with osteo-bone graft tapped in position. The rods were then locked in final position bilaterally. The transverse processes of L5 and the sacral ala burred to subcortical bleeding bone. Infuse collagen sponge master graft local autograft was then placed in the posterior gutters. 15 round ZHEN drain inserted. The incision was then closed with 1 Vicryl the fascia 2-0 Vicryl subcutaneously and 4 Monocryl for final skin closure. Steri-Strip sterile dressings placed. Patient waken taken to PACU stable condition. Please note spinal cord monitoring was utilized that the procedure and no changes noted. Lastly Pippa Gaona was present throughout the entire surgery involved in patient positioning complex portions of the surgery and final skin closure. I attest to the content of the Intraoperative Record and any orders documented therein. Any exceptions are noted below.
--- NOTE | 2020-02-11 12:55 | Fluoroscopy Report ---
FL lumbar spine 2-3V HISTORY: 79 years-old Female L5-S1 DECOMPRESSION FUSION/L2-L5 HARDWARE REMOVAL COMPARISON: Fluoroscopic images of the lumbar spine 11/10/2016 TECHNIQUE: 2 spot fluoroscopic images of the lumbar spine were obtained utilizing 11.4 seconds fluoro scopy time FINDINGS: Laminectomy with discectomy, posterior interbody radha and screw fusion is noted at L5-S1. There appear s to have been removal of the hardware at the L2 and L3 levels. The hardware appears intact. There is satisfactory alignment. IMPRESSION: Fluoroscopic assistance as above. Please see operative report for further details. ACT 112: Negative or not required by law. The above report was generated using voice recognition software. It may contain grammatical, syntax o r spelling errors. Electronically signed by: Sb Mendiola M.D. 02/11/2020 12:53 PM
[2020-02-11] MEDS: fentaNYL citrate 100 MCG/2 ML VIAL IV PRN ×6 (13:22→13:47)
--- NOTE | 2020-02-11 14:02 | Anesthesiology Progress Note ---
Date of Service February 11, 2020 Anesthesia Post Procedure Vital Signs Vital Signs: Temp Pulse Pulse Resp BP BP Pulse Ox 02/11/20 14:00 97.5 F L 54 L 14 111/57 L 94 02/11/20 13:50 57 L 17 95/61 L 100 02/11/20 13:40 53 L 12 135/55 L 95 02/11/20 13:30 56 L 16 127/67 96 02/11/20 13:20 56 L 18 126/61 100 02/11/20 13:11 97.3 F L 62 12 140/62 100 02/11/20 09:18 98.2 F 64 18 169/78 H 97 Pain Intensity Back: Pain Intensity: 4 Transfer of Care Handoff Completed per policy Notes Mental Status: alert / awake / arousable and participated in evaluation Patient Amnestic to Procedure: Yes Nausea / Vomiting: adequately controlled Pain: adequately controlled Airway Patency, RR, SpO2: stable & adequate BP & HR: stable & adequate Hydration State: stable & adequate Anesthetic Complications: no major complications apparent and Pt Satisfied with anesthetic care
[2020-02-11] MEDS ORDERED: FAMOTIDINE 20 MG TAB PO PRN (14:24)
[2020-02-11] MEDS ORDERED: METOCLOPRAMIDE HCL INJ 5 MG/ML 2 ML VIAL IV PRN (14:24)
[2020-02-11] MEDS ORDERED: ACETAMINOPHEN 1,000 MG/100 ML VIAL IV PRN (14:24)
[2020-02-11] MEDS ORDERED: MAGNESIUM HYDROXIDE SUSP 30 ML UDC PO PRN (14:24)
[2020-02-11] MEDS ORDERED: NALOXONE HCL 0.4 MG/1 ML VIAL/CARP IV PRN (14:24)
[2020-02-11] MEDS ORDERED: ALUMINUM/MAGNESIUM SUSP 30 ML UDC PO PRN (14:24)
[2020-02-11] MEDS ORDERED: HYDROmorphone INJ 1 MG/ML SYRINGE IV PRN (14:24)
[2020-02-11] MEDS ORDERED: bisacodyL 10 MG SUPP PR PRN (14:24)
[2020-02-11] MEDS ORDERED: PROMETHAZINE HCL 12.5 MG in SODIUM CHLORIDE 0.9% 50 ML IV PRN (14:24)
[2020-02-11] MEDS ORDERED: SOD PHOSPHATE/SOD BIPHOSPHATE ENEMA 132 ML BTL PR PRN (14:24)
[2020-02-11] MEDS ORDERED: ONDANSETRON 4 MG OD TAB PO PRN (14:24)
[2020-02-11] MEDS ORDERED: DO NOT ADMINISTER PNEUMOCOCCAL VACCINE PRN (14:24)
[2020-02-11] MEDS ORDERED: LORazepam 0.5 MG TAB PO PRN (14:24)
[2020-02-11] MEDS ORDERED: LORazepam 0.5 MG/1 ML VIAL IV PRN (14:24)
[2020-02-11] MEDS ORDERED: DO NOT ADMINISTER FLU VACCINE PRN (14:24)
[2020-02-11] MEDS ORDERED: HYDROmorphone INJ 0.5 MG/0.5 ML SYR IV PRN (14:24)
--- NOTE | 2020-02-11 15:21 | Consultation ---
Date of Consultation February 11, 2020 Assessment & Plan (1) Status post lumbar surgery: Post op day# 0 S/P Instrumentation removal L2-L5 & decompression and fusion L5-S1 by Dr Toledo EBL#150ml -pain management per ortho -wound management per ortho -PT/OT as appropriate -DVT prophylaxis per ortho -incentive spirometry -monitor H&H for acute blood loss anemia; pre-op Hgb: 13.7 (2) HTN (hypertension): Stable -Continue amlodipine, atenolol (3) CAD (coronary artery disease): S/P Stent 2005 No CP -Continue statin, atenolol (4) PMR (polymyalgia rheumatica): -Continue prednisone daily (5) Sleep apnea: -Continue CPAP HS DVT Prophylaxis -SCDs per ortho Disposition per primary service Follows with Dr Manuel Winters in [place] for routine care Pt was seen and care coordinated with Dr Singh. See addendum Thank you for this consultation. We will follow the patient with you during their hospital stay. You [facility] a [facility] via pager @ [phone]. Supervising Physician Co-Signing Physician Notes 79 y/o F with PMH CAD, mitral valve prolapse, HTN, HLD, PMR, GERD, sleep apnea, s/p removal instrumentation L2-L5, decompression and fusion today performed by Dr. Toledo. No postop complication. Continue pain management as per ortho. PT/OT evaluation. Monitor H/H. Continue incentive spirometry. Fall precaution. Continue monitor closely. MD Samantha History of Present Illness Requesting Physician: Dr Toledo Reason for Consultation: Post op medical management Attending Physician: Magno Toledo DO History of Present Illness Pt is 79 y/o F with PMH CAD, mitral valve prolapse, HTN, HLD, PMR, GERD, sleep apnea seen in medical consultation s/p removal instrumentation L2-L5, decompression and fusion L5-S1 by Dr. Toledo today. Post op pt reports some mild discomfort to low back and posterior bilateral legs. Denies paresthesias. Denies nausea, vomiting, shortness of breath, chest pain, dizziness. Reports had BM this morning prior to surgery. Has Parker cath in place. Denies fever/chills, diaphoresis, ALFONOS, vision changes, neck pain, palpitations, cough, sore throat, choking, abdominal pain, extremity edema, rashes, urinary symptoms. Allergies Allergy/AdvReac Type Severity Reaction Status Date / Time adhesive Allergy Intermediate Redness of Verified 02/11/20 09:08 Skin Iodinated Contrast Media Allergy Unknown HIVES Verified 02/11/20 09:08 citalopram [From Celexa] AdvReac Mild didnt feel Verified 02/11/20 09:08 well on this tramadol AdvReac Unknown WEAKNESS Verified 02/11/20 09:08 Home Medications Home Medications Medication Instructions Recorded Confirmed Type allopurinol 150 mg PO Q OTHER DAY 01/07/20 02/11/20 History allopurinol 300 mg PO Q OTHER DAY 01/07/20 02/11/20 History amlodipine [Norvasc] 5 mg PO PM 01/07/20 02/11/20 History ascorbic acid (vitamin C) [Vitamin 1,000 mg PO PM 01/07/20 01/07/20 History C] atenolol 25 mg PO BID 01/07/20 02/11/20 History cholecalciferol (vitamin D3) 50 mcg PO PM 01/07/20 02/11/20 History [Vitamin D3] coenzyme Q10 [Co Q-10] 10 mg PO BID 01/07/20 02/11/20 History cyanocobalamin (vitamin B-12) 1,000 mcg PO PM 01/07/20 02/11/20 History famotidine 20 mg PO HS 01/07/20 02/11/20 History fish,bora,flax oils-om3,6,9no1 1 cap PO BID 01/07/20 02/11/20 History [[place] 3-6-9] flunisolide 2 spray INTRANASAL QAM 01/07/20 02/11/20 History gabapentin 300 mg PO TID 01/07/20 02/11/20 History magnesium 500 mg PO PM 01/07/20 02/11/20 History melatonin 5 mg PO HS 01/07/20 02/11/20 History multivitamin 1 tab PO PM 01/07/20 02/11/20 History omeprazole magnesium [Prilosec OTC] 20 mg PO QAM 01/07/20 02/11/20 History potassium citrate 2,160 mg PO BID 01/07/20 02/11/20 History prednisone 5 mg PO Q OTHER DAY 01/07/20 02/11/20 History prednisone 7.5 mg PO Q OTHER DAY 01/07/20 02/11/20 History propylene glycol [Systane Balance] 1 drp OPHTHALMIC (EYE) BID PRN 01/07/20 02/11/20 History rosuvastatin [Crestor] 10 mg PO PM 01/07/20 02/11/20 History vit C,F-Mg-niere-lutein-zeaxan 1 tab PO BID 01/07/20 02/11/20 History [PreserVision AREDS-2] vitamin B complex-folic acid [B 1 tab PO PM 01/07/20 02/11/20 History Complex 1 (with folic acid)] zinc 50 mg PO PM 01/07/20 02/11/20 History L. acidophilus-L. rhamnosus 1 cap PO HS 01/10/20 02/11/20 History [Probiotic] acetaminophen [Tylenol Extra 500 mg PO Q6H PRN 01/10/20 02/11/20 History Strength] aspirin 81 mg PO QAM 01/10/20 02/11/20 History docusate sodium 200 mg PO HS 01/10/20 02/11/20 History polyethylene glycol 3350 [Miralax] 17 g PO DAILY PRN 01/10/20 02/11/20 History Patient History Medical History CAD (coronary artery disease) s/p 1 stent 2005 DDD (degenerative disc disease) DVT (deep venous thrombosis) RIGHT LEG > 1994 > POST OP GERD (gastroesophageal reflux disease) Hyperlipidemia Hypoparathyroidism Mitral valve prolapse atenolol for this not htn Osteoarthritis PMR (polymyalgia rheumatica) Prednisone daily Sleep apnea cpap Slow to wake up after anesthesia Temporal arteritis RIGHT SIDE Tremor Surgical History Fusion of spine LUMBAR X2 H/O parathyroidectomy History of appendectomy History of arthroscopy RIGHT KNEE History of arthroscopy LEFT SHOULDER History of bilateral tubal ligation History of cardiac cath august 2005 History of cholecystectomy History of colonoscopy History of dilatation and curettage History of fracture of left ankle WITH REPAIR History of fracture of right ankle WITH REPAIR History of heart artery stent august 2005> 1 stent History of lithotripsy 1995 History of tooth extraction History of total replacement of left ankle Hx of bilateral cataract extraction Hx of lymph node excision DURING PARATHYROIDECTOMY Kidney stones 1964/1974/1994 > WITH OPEN SURGICAL REPAIR BILAT AT DIFFERENT TIMES Family History Mother Diabetes Father Diabetes Sister Diabetes Brother Diabetes Brother Diabetes Brother Diabetes Brother Diabetes Social History Smoking Status: Never smoker Second Hand Exposure: No; Do You Dip or Chew Tobacco: No; Tobacco Cessation Education Requested by Patient: No Hx Alcohol Use: No Hx Substance Use: No Preferred Language: Maltese Communication Ability: Effective Crime Specialist Required: No Beliefs That Will Affect Care: None Current Living Situation: Alone Current Living Situation Comment: DAUGHTER LIVES BESIDE HER Other Information That Helps Us Care for You: No Feels Safe at Home: Yes Safety Concerns: Feels Safe At This Time Review of Systems Review of Systems: All systems reviewed & are unremarkable except as noted in HPI & below Physical Exam Physical Exam: General: no distress, WDWN Head: normocephalic, atraumatic Eyes: conjunctiva non-injected, anicteric ENT: normal inspection external ears, nose, mucous membranes moist Neck: supple, trachea midline Lungs: clear, no respiratory distress, no wheezing/rhonchi/rales CV: RRR, no murmur, no pretibial edema Abd: normal BS, soft, non-tender Back: surgical dressing in place, ZHEN drain in place with serosanguineous drainage Ext: no calf tenderness; pedal pushes and pulls intact bilaterally Neuro: A&O x 3, no focal deficits noted, normal affect Skin: warm, dry Results & Data ([facility]) Vital Signs (Past 12 Hours) Vital Signs Temp Pulse Pulse Resp BP BP Pulse Ox 02/11/20 14:26 36.4 C L 55 L 16 129/67 100 02/11/20 14:00 36.4 C L 54 L 14 111/57 L 94 02/11/20 13:50 57 L 17 95/61 L 100 02/11/20 13:40 53 L 12 135/55 L 95 02/11/20 13:30 56 L 16 127/67 96 02/11/20 13:20 56 L 18 126/61 100 09/14/20 13:11 36.3 C L 62 12 140/62 100 02/11/20 09:18 36.8 C 64 18 169/78 H 97
[2020-02-11] MEDS: GABAPENTIN 300 MG CAP PO SCH ×2 (15:56→20:13)
[2020-02-11] MEDS: OXYCODONE HCL IR 5 MG TAB (IMMEDIATE RELEASE) PO PRN ×2 (15:56→20:02)
[2020-02-11] MEDS: allopurinoL 300 MG TAB PO SCH (16:51)
[2020-02-11] MEDS: SODIUM CHLORIDE 0.9% 1000ML 1,000 ML IV SCH (17:38)
[2020-02-11] MEDS: CEFAZOLIN 2000MG 2,000 MG/15 ML SYR IV SCH (18:49)
[2020-02-11] MEDS: POTASSIUM CITRATE 10 MEQ TAB PO SCH (20:12)
[2020-02-11] MEDS: AMLODIPINE BESYLATE 5 MG TAB PO SCH (20:13)
[2020-02-11] MEDS: ATENOLOL 25 MG TABLET PO SCH (20:14)
[2020-02-11] MEDS: FAMOTIDINE 20 MG TAB PO SCH (20:14)
[2020-02-11] MEDS: ROSUVASTATIN CALCIUM 10 MG TAB PO SCH (20:14)
[2020-02-11] MEDS: DOCUSATE SODIUM/SENNA 50/8.6MG TAB PO SCH (20:15)
[2020-02-11] MEDS: LACTOBACILLUS ACIDOPHILUS 1 GM PACK PO SCH (20:15)
[2020-02-11] MEDS: MELATONIN 3 MG TAB PO SCH (20:18)
[2020-02-11] MEDS ORDERED: ASCORBIC ACID 500 MG TAB PO SCH (21:00)
[2020-02-11] MEDS ORDERED: CHOLECALCIFEROL 1,000 UNITS 25 MCG TAB PO SCH (21:00)
[2020-02-11] MEDS ORDERED: MAGNESIUM OXIDE 400 MG TAB PO SCH (21:00)
[2020-02-11] MEDS ORDERED: CYANOCOBALAMIN 500 MCG TABLET (VITAMIN B-12) PO SCH (21:00)
[2020-02-11] MEDS ORDERED: VITAMIN B COMPLEX TAB PO SCH (21:00)
[2020-02-11] MEDS ORDERED: MULTIVITAMIN TAB PO SCH (21:00)
[2020-02-11] MEDS ORDERED: NON-FORMULARY MEDICATION (Vit C,E-Zn-Coppr-Lutein-Zeaxan [Preservision Areds-2] 1 TAB) PO SCH (21:00)
[2020-02-11] MEDS ORDERED: NON-FORMULARY MEDICATION (Coenzyme Q10 [Co Q-10] 10 MG) PO SCH (21:00)
[2020-02-11] MEDS ORDERED: NON-FORMULARY MEDICATION (Zinc 50 MG) PO SCH (21:00)
[2020-02-11] MEDS ORDERED: COUGH DROP (SUGAR FREE) LOZ 24 LOZ/1 BOX BUCCAL PRN (21:44)
[2020-02-12] MEDS: CEFAZOLIN 2000MG 2,000 MG/15 ML SYR IV SCH (03:44)
[2020-02-12] MEDS: SODIUM CHLORIDE 0.9% 1000ML 1,000 ML IV SCH (05:50)
[2020-02-12 06:26] LABS: Basophils # (auto) 0.01 K/uL (0-0.2); Basophils % (auto) 0.2 %; Eosinophils # (auto) 0.12 K/uL (0-0.5); Eosinophils % (auto) 1.9 %; Hematocrit (blood only) 34.4 % (37-47); Hemoglobin 10.8 g/dL (12.0-16.0); Lymphocytes # (auto) 0.82 K/uL (1.2-3.4); Lymphocytes % (auto) 12.7 %; Mean Corpuscular Hemoglobin 30.3 pg (25-34); Mean Corpuscular Hgb Conc 31.4 g/dL (32-36); Mean Corpuscular Volume 96.4 fL (80-100); Mean Platelet Volume 9.9 fL (7.4-10.4); Monocytes # (auto) 0.85 K/uL (0.11-0.59); Monocytes % (auto) 13.1 %; Neutrophils # (auto) 4.67 K/uL (1.4-6.5); Neutrophils % (auto) 72.1 %; Platelet Count 168 K/uL (130-400); RDW Coefficient of Variation 13.9 % (11.5-14.5); RDW Standard Deviation 48.7 fL (36.4-46.3); Red Blood Count 3.57 M/uL (4.2-5.4); White Blood Count 6.47 K/uL (4.8-10.8)
[2020-02-12] MEDS: POLYETHYLENE (MIRALAX) 17 GM PACK PO SCH ×3 (06:29→17:28)
[2020-02-12 06:53] LABS: BUN Creatinine Ratio 15.8 (10-20); Calcium 8.1 mg/dl (8.5-10.1); Est GFR (African American) 70.9; Est GFR (Non-African American) 61.2; Potassium 4.1 mmol/L (3.5-5.1)
[2020-02-12] MEDS: OXYCODONE HCL IR 5 MG TAB (IMMEDIATE RELEASE) PO PRN ×2 (07:12→18:20)
[2020-02-12] MEDS: ASPIRIN 81 MG ECTAB PO SCH (08:45)
[2020-02-12] MEDS: predniSONE 5 MG TAB PO SCH (08:46)
[2020-02-12] MEDS: GABAPENTIN 300 MG CAP PO SCH ×3 (08:46→22:04)
[2020-02-12] MEDS: PANTOprazole 40 MG TAB PO SCH (08:47)
[2020-02-12] MEDS: POTASSIUM CITRATE 10 MEQ TAB PO SCH ×2 (08:47→22:04)
[2020-02-12] MEDS: allopurinoL 300 MG TAB PO SCH (08:47)
[2020-02-12] MEDS: ATENOLOL 25 MG TABLET PO SCH ×2 (08:50→22:05)
--- NOTE | 2020-02-12 09:25 | Hospitalist Progress Note ---
Date of Service February 12, 2020 Assessment & Plan (1) Status post lumbar surgery: Post op day# 1 S/P Instrumentation removal L2-L5 & decompression and fusion L5- S1 by Dr Toledo [id number]; ZHEN drain 320ml Pain/wound management per Ortho Activity and therapy as directed by Ortho Continue to encourage incentive spirometry DVT prophylaxis per Ortho (2) Anemia: Preop hemoglobin 13.7 H&H today 10.8 and 34.4 Likely in setting of acute blood loss anemia due to surgery and dilutional component (3) HTN (hypertension): Control blood pressure 114/65 Continue amlodipine, atenolol (4) CAD (coronary artery disease): S/P Stent 2005 No CP Continue statin, atenolol (5) PMR (polymyalgia rheumatica): Continue prednisone daily (6) Sleep apnea: Continue CPAP HS DVT Prophylaxis SCDs per ortho Disposition per primary service Follows with Dr Manuel Winters in [place] for routine care Pt was seen and care coordinated with Dr Bee. See addendum Thank you for this consultation. We will follow the patient with you during their hospital stay. You can reach a member of the [facility]ist Team 20/12 via pager @ [phone]. Admission and Anticipated Discharge Date Admission Date: February 11, 2020 Supervising Physician Co-Signing Physician Notes I have seen and examined the patient and have discussed the case with the provider above. I agree with the assessment and plan as stated. 79 yo F with no complaints excepts some back pain as listed above. We moved all her vitamins to early afternoon per her request. She was up and ambulating. Tolerating PO. Physical as above and drain in place with serosanguinous drainage. Cont plan per ortho. 1) spinal surgery, post op state. 2) acute blood loss anemia and hemodilutional anemia. DVT prophy per Ortho. SCDs were on the patient during my exam. Thank you for this consultation. DO Awilda Bee Patient was seen and examined in room 316. She is status post lumbar procedure POD #[address] Toledo. She feels well this morning. Slept well, except for interruptions, with her CPAP last evening. She does complain of mild back discomfort but knows this is expected. Continues to have Parker catheter in place. She denies any fever, chills, sweats, lightheadedness, dizziness, chest pain, shortness with, cough, nausea, vomiting, abdominal pain. She is passing flatus. She is tolerating regular diet. No concerns per nursing staff at bedside. Review of Systems Review of Systems: All systems reviewed & are unremarkable except as noted in HPI & below Physical Exam Physical Exam: Gen: WD/WN, F, NAD, A&O x3 HEENT: Normocephalic, atraumatic, conjunctivae moist, sclerae anicteric, mucous membranes moist. Lung: Clear to Auscultation bilaterally, no wheezes/rales/rhonchi Heart: Regular rate, regular rhythm, no murmurs, rubs, or gallops Abdomen: Soft, NT, ND +BS x 4 Extremities: No edema, lumbar dressing CDI, ZHEN intact with serosanguineous drainage Skin: Warm, no rash, negative turgor. : Parker cath in place draining clear yellow urine Results & Data Results & Data ([facility]) Vital Signs (Past 12 Hours) Vital Signs Temp Pulse Resp BP BP Pulse Ox 02/12/20 08:50 77 114/65 93 02/12/20 07:43 37.1 C 70 16 105/53 L 91 02/12/20 02:26 36.8 C 68 16 105/63 92 02/11/20 23:08 36.5 C 62 16 96/56 L 95 Laboratory Results Short CBC 02/12/20 Range/Units 05:28 WBC 6.47 (4.8-10.8) K/uL Hgb 10.8 L (12.0-16.0) g/dL Hct 34.4 L (37-47) % Plt Count 168 (130-400) K/uL BMP 02/12/20 05:28 Sodium 140 Potassium 4.1 Chloride 108 H Carbon Dioxide 28 BUN 14 Creatinine 0.89 Glucose 118 H Calcium 8.1 L Medications Administered Al Hydrox/Mg Hydrox/Simethicone (Aluminum/Magnesium Susp 30 Ml Udc) 30 ml PO Q6H PRN PRN Reason: Dyspepsia Stop: 03/12/20 14:23 Last Admin: 02/11/20 20:03 Dose: 30 ml Documented by: [id number] Allopurinol (Allopurinol 300 Mg Tab) 150 mg PO Q48H [facility] Stop: 03/12/20 14:59 Last Admin: 02/11/20 16:51 Dose: Not Given Documented by: [id number] Allopurinol (Allopurinol 300 Mg Tab) 300 mg PO Q48H [facility] Stop: 03/13/20 08:59 Last Admin: 02/12/20 08:47 Dose: 300 mg Documented by: [id number] Amlodipine Besylate (Amlodipine Besylate 5 Mg Tab) 5 mg PO PM [facility] Stop: 03/12/20 20:59 Last Admin: 02/11/20 20:13 Dose: 5 mg Documented by: [id number] Ascorbic Acid (Ascorbic Acid 500 Mg Tab) 1,000 mg PO PM PALOMO Stop: 03/12/20 20:59 Last Admin: 02/11/20 20:15 Dose: 1,000 mg Documented by: [id number] Aspirin (Aspirin 81 Mg Ectab) 81 mg PO QAM [facility] Stop: 03/13/20 08:59 Last Admin: 02/12/20 08:45 Dose: 81 mg Documented by: [id number] Atenolol (Atenolol 25 Mg Tablet) 25 mg PO BID [facility] Stop: 03/12/20 20:59 Last Admin: 02/12/20 08:50 Dose: 25 mg Documented by: [id number] Admin: 02/11/20 20:14 Dose: Not Given Documented by: [id number] Cyanocobalamin (Cyanocobalamin 500 Mcg Tablet (Vitamin B-12)) 1,000 mcg PO PM [facility]O Stop: 03/12/20 20:59 Last Admin: 02/11/20 20:11 Dose: 1,000 mcg Documented by: [id number] Famotidine (Famotidine 20 Mg Tab) 20 mg PO HS [facility] Stop: 03/12/20 20:59 Last Admin: 02/11/20 20:14 Dose: 20 mg Documented by: [id number] Gabapentin (Gabapentin 300 Mg Cap) 300 mg PO TID [facility] Stop: 03/12/20 14:44 Last Admin: 02/12/20 08:46 Dose: 300 mg Documented by: [id number] Admin: 02/11/20 20:13 Dose: 300 mg Documented by: [id number] Admin: 02/11/20 15:56 Dose: 300 mg Documented by: [id number] Acetaminophen (Ofirmev) 1,000 mg in 100 mls @ 400 mls/hr IV Q8H PRN PRN Reason: MILD Pain Rating 1,2,3 Stop: 02/12/20 14:23 Last Infusion: 02/12/20 02:53 Dose: 0 mls/hr Documented by: [id number] Admin: 02/12/20 02:37 Dose: 400 mls/hr Documented by: [id number] Lactobacillus Acidophilus (Lactobacillus Acidophilus 1 Gm Pack) 1 gm PO HS PALOMO Stop: 03/12/20 20:59 Last Admin: 02/11/20 20:15 Dose: 1 gm Documented by: [id number] Magnesium Oxide (Magnesium Oxide 400 Mg Tab) 400 mg PO PM [facility]O Stop: 03/12/20 20:59 Last Admin: 02/11/20 20:12 Dose: 400 mg Documented by: [id number] Melatonin (Melatonin 3 Mg Tab) 3 mg PO HS PALOMO Stop: 03/12/20 20:59 Last Admin: 02/11/20 20:18 Dose: 3 mg Documented by: [id number] Menthol (Cough Drop (Sugar Free) Wilder 24 Wilder/1 Box) 1 wilder BUCCAL PRN PRN PRN Reason: Sore Throat Stop: 03/12/20 21:43 Last Admin: 02/11/20 21:51 Dose: 1 wilder Documented by: [id number] Miscellaneous (Flunisolide 2 Sprays~Order Awaiting Action) 1 ea N/A QS [facility] Stop: 03/12/20 15:59 Last Admin: 02/12/20 08:56 Dose: Not Given Documented by: [id number] Admin: 02/11/20 23:40 Dose: Not Given Documented by: [id number] Admin: 02/11/20 15:50 Dose: Not Given Documented by: [id number] Miscellaneous (Propylene Glycol [Systane Balance] 1 Drops~Order Awaiting Action) 1 ea N/A QS [facility] Stop: 03/12/20 15:59 Last Admin: 02/12/20 08:56 Dose: Not Given Documented by: [id number] Admin: 02/11/20 23:40 Dose: Not Given Documented by: [id number] Admin: 02/11/20 15:50 Dose: Not Given Documented by: [id number] Multivitamins (Multivitamin Tab) 1 tab PO PM PALOMO Stop: 03/12/20 20:59 Last Admin: 02/11/20 20:14 Dose: 1 tab Documented by: [id number] Oxycodone HCl (Oxycodone Hcl Ir 5 Mg Tab (Immediate Release)) 5 - 10 mg PO Q4H PRN PRN Reason: Moderate-Severe Pain & Pre PT Stop: 02/25/20 14:23 Last Admin: 02/12/20 07:12 Dose: 5 mg Documented by: [id number] Admin: 02/11/20 20:02 Dose: 5 mg Documented by: [id number] Admin: 02/11/20 15:56 Dose: 5 mg Documented by: [id number] Pantoprazole Sodium (Pantoprazole 40 Mg Tab) 40 mg PO QAM [facility] Stop: 03/13/20 08:59 Last Admin: 02/12/20 08:47 Dose: 40 mg Documented by: [id number] Polyethylene Glycol (Polyethylene (Miralax) 17 Gm Pack) 17 gm PO Q6 [facility] Stop: 03/13/20 05:59 Last Admin: 02/12/20 06:29 Dose: 17 gm Documented by: [id number] Potassium Citrate (Potassium Citrate 10 Meq Tab) 20 meq PO BID PAL[facility]O Stop: 03/12/20 20:59 Last Admin: 02/12/20 08:47 Dose: 20 meq Documented by: [id number] Admin: 02/11/20 20:12 Dose: 20 meq Documented by: [id number] Prednisone (Prednisone 5 Mg Tab) 7.5 mg PO Q48H [facility] Stop: 03/13/20 08:59 Last Admin: 02/12/20 08:46 Dose: 7.5 mg Documented by: [id number] Rosuvastatin Calcium (Rosuvastatin Calcium 10 Mg Tab) 10 mg PO PM [facility]O Stop: 03/12/20 20:59 Last Admin: 02/11/20 20:14 Dose: 10 mg Documented by: [id number] Senna/Docusate Sodium (Docusate Sodium/Senna 50/8.6mg Tab) 2 tab PO HS [facility]OMO Stop: 03/12/20 20:59 Last Admin: 02/11/20 20:15 Dose: 2 tab Documented by: [id number] Vitamin B Complex (Vitamin B Complex Tab) 1 tab PO PM [facility]O Stop: 03/12/20 20:59 Last Admin: 02/11/20 20:16 Dose: 1 tab Documented by: [id number] Vitamin D (Cholecalciferol 1,000 Units 25 Mcg Tab) 2,000 units PO PM [facility]O Stop: 03/12/20 20:59 Last Admin: 02/11/20 20:11 Dose: 2,000 units Documented by: [id number] Discontinued Medications Acetaminophen (Acetaminophen 500 Mg Tab) 1,000 mg PO PREOP [facility] Stop: 02/11/20 18:00 Last Admin: 02/11/20 09:39 Dose: 1,000 mg Documented by: [id number] Bacitracin (Bacitracin Inj 50,000 Unit Vial) Confirm Administered Dose 50,000 units .ROUTE .STK-MED ONE Stop: 02/11/20 10:26 Last Admin: 02/11/20 12:44 Dose: 50,000 units Documented by: [id number] Bupivacaine HCl/Epinephrine Bitart (Bupivacaine/Epinephrine 0.25% 1:200,000 30 Ml Vial) Confirm Administered Dose 30 ml .ROUTE .STK-MED ONE Stop: 02/11/20 10:26 Last Admin: 02/11/20 11:21 Dose: 30 ml Documented by: [id number] Celecoxib (Celebrex 200 Mg Cap) 200 mg PO PREOP [place]O Stop: 02/11/20 18:00 Last Admin: 02/11/20 09:39 Dose: 200 mg Documented by: [id number] Fentanyl Citrate (Fentanyl Citrate 100 Mcg/2 Ml Vial) 25 mcg IV Q5M PRN PRN Reason: PACU Use Only-Pain Stop: 02/11/20 18:12 Last Admin: 02/11/20 13:47 Dose: 25 mcg Documented by: [id number] Admin: 02/11/20 13:42 Dose: 25 mcg Documented by: [id number] Admin: 02/11/20 13:37 Dose: 25 mcg Documented by: [id number] Admin: 02/11/20 13:32 Dose: 25 mcg Documented by: [id number] Admin: 02/11/20 13:27 Dose: 25 mcg Documented by: [id number] Admin: 02/11/20 13:22 Dose: 25 mcg Documented by: [id number] Gabapentin (Gabapentin 300 Mg Cap) 300 mg PO PREOP [facility]O Stop: 02/11/20 18:00 Last Admin: 02/11/20 09:36 Dose: Not Given Documented by: [id number] Lactated Ringer's (Lr) 1,000 mls @ 15 mls/hr IV .Q24H [facility]O Stop: 02/12/20 05:59 Last Infusion: 02/11/20 10:52 Dose: 0 mls/hr Documented by: [id number] Admin: 02/11/20 09:40 Dose: 15 mls/hr Documented by: [id number] Cefazolin Sodium (Ancef 2000mg) 2,000 mg in 15 mls @ 3.75 mls/min IV PREOP PALOMO; Protocol Stop: 02/11/20 18:00 Last Admin: 02/11/20 10:52 Dose: 3.75 mls/min Documented by: [id number] Sodium Chloride (Nss 1000ml) 1,000 mls @ 100 mls/hr IV .Q10H [facility]O Stop: 03/12/20 14:23 Last Admin: 02/12/20 05:50 Dose: Not Given Documented by: [id number] Infusion: 02/12/20 05:50 Dose: 0 mls/hr Documented by: [id number] Infusion: 02/11/20 21:29 Dose: 100 mls/hr Documented by: [id number] Admin: 02/11/20 17:38 Dose: 100 mls/hr Documented by: [id number] Cefazolin Sodium (Ancef 2000mg) 2,000 mg in 15 mls @ 3.75 mls/min IV Q8H PALOMO; Protocol Stop: 02/12/20 03:03 Last Admin: 02/12/20 03:44 Dose: 3.75 mls/min Documented by: [id number] Admin: 02/11/20 18:49 Dose: 3.75 mls/min Documented by: [id number] Miscellaneous ( Floseal Hemostatic Matrix 10ml) 26 ml TOP ONCE ONE Stop: 02/11/20 12:46 Last Admin: 02/11/20 12:48 Dose: 26 ml Documented by: [id number]
[2020-02-12] MEDS: ACETAMINOPHEN 500 MG TAB PO PRN ×2 (10:42→22:16)
--- NOTE | 2020-02-12 13:11 | Orthopedic Progress Note ---
Date of Service February 12, 2020 Assessment & Plan (1) Status post lumbar surgery: Admission and Anticipated Discharge Date Admission Date: February 11, 2020 At this time she will initiate physical therapy will assess her progress in the next few days. She would like to consider rehab. Subjective Patient's leg pain is improved. Back pain controlled. Physical Exam Physical Exam: Patient is good strength testing appears comfortable. Results & Data ([facility]) Vital Signs (Past 12 Hours) Vital Signs Temp Pulse Resp BP BP Pulse Ox 02/12/20 12:00 37.4 C 69 16 103/62 02/12/20 08:50 77 114/65 93 02/12/20 07:43 37.1 C 70 16 105/53 L 91 02/12/20 02:26 36.8 C 68 16 105/63 92
[2020-02-12] MEDS ORDERED: ASCORBIC ACID 500 MG TAB PO ONE (15:01)
[2020-02-12] MEDS ORDERED: CHOLECALCIFEROL 1,000 UNITS 25 MCG TAB PO ONE (15:04)
[2020-02-12] MEDS ORDERED: CYANOCOBALAMIN 500 MCG TABLET (VITAMIN B-12) PO ONE (15:05)
[2020-02-12] MEDS ORDERED: MULTIVITAMIN TAB PO ONE (15:06)
[2020-02-12] MEDS ORDERED: MAGNESIUM OXIDE 400 MG TAB PO ONE (15:07)
[2020-02-12] MEDS ORDERED: VITAMIN B COMPLEX TAB PO ONE (15:09)
[2020-02-12] MEDS ORDERED: ZINC SULFATE 220 MG CAPSULE PO ONE (16:15)
[2020-02-12] MEDS: MELATONIN 3 MG TAB PO SCH (22:04)
[2020-02-12] MEDS: LACTOBACILLUS ACIDOPHILUS 1 GM PACK PO SCH (22:05)
[2020-02-12] MEDS: AMLODIPINE BESYLATE 5 MG TAB PO SCH (22:05)
[2020-02-12] MEDS: DOCUSATE SODIUM/SENNA 50/8.6MG TAB PO SCH (22:05)
[2020-02-12] MEDS: ROSUVASTATIN CALCIUM 10 MG TAB PO SCH (22:05)
[2020-02-12] MEDS: FAMOTIDINE 20 MG TAB PO SCH (22:05)
[2020-02-13] MEDS: POLYETHYLENE (MIRALAX) 17 GM PACK PO SCH ×3 (00:05→11:59)
[2020-02-13] MEDS: ACETAMINOPHEN 500 MG TAB PO PRN ×2 (03:14→16:37)
[2020-02-13 06:12] LABS: Hematocrit (blood only) 33.1 % (37-47); Mean Corpuscular Hemoglobin 31.8 pg (25-34); Mean Corpuscular Hgb Conc 33.2 g/dL (32-36); Mean Corpuscular Volume 95.7 fL (80-100); Mean Platelet Volume 9.6 fL (7.4-10.4); Platelet Count 166 K/uL (130-400); RDW Coefficient of Variation 14.2 % (11.5-14.5); RDW Standard Deviation 49.5 fL (36.4-46.3); Red Blood Count 3.46 M/uL (4.2-5.4)
[2020-02-13] MEDS: OXYCODONE HCL IR 5 MG TAB (IMMEDIATE RELEASE) PO PRN ×2 (07:37→19:25)
[2020-02-13] MEDS: POTASSIUM CITRATE 10 MEQ TAB PO SCH ×2 (07:37→22:13)
[2020-02-13] MEDS: ASPIRIN 81 MG ECTAB PO SCH (07:38)
[2020-02-13] MEDS: GABAPENTIN 300 MG CAP PO SCH ×3 (07:38→22:13)
[2020-02-13] MEDS: ATENOLOL 25 MG TABLET PO SCH ×2 (07:38→22:12)
[2020-02-13] MEDS: PANTOprazole 40 MG TAB PO SCH (07:38)
--- NOTE | 2020-02-13 08:47 | Hospitalist Progress Note ---
Date of Service February 13, 2020 Assessment & Plan (1) Status post lumbar surgery: Post op day# 2 S/P Instrumentation removal L2-L5 & decompression and fusion L5- S1 by Dr Toledo [id number]; ZHEN drain 545ml Pain/wound management per Ortho Activity and therapy as directed by Ortho Continue to encourage incentive spirometry DVT prophylaxis per Ortho Pt c/o itching around bandage site, no rash seen - will add hydrocortisone cream bid prn (2) Anemia: Preop hemoglobin 13.7 H&H today 11.0 and 33.1 Likely in setting of acute blood loss anemia due to surgery and dilutional component (3) HTN (hypertension): Control blood pressure 114/65 Continue amlodipine, atenolol (4) CAD (coronary artery disease): S/P Stent 2005 No CP Continue statin, atenolol (5) PMR (polymyalgia rheumatica): Continue prednisone daily (6) Sleep apnea: Continue CPAP HS DVT Prophylaxis SCDs per ortho Disposition per primary service Follows with Dr Manuel Winters in [place] for routine care Pt was seen and care coordinated with Dr Limon. See addendum Thank you for this consultation. We will follow the patient with you during their hospital stay. You can reach a member of the [facility] Hospitalist Team 20/12 via pager @ [phone]. Admission and Anticipated Discharge Date Admission Date: February 11, 2020 Supervising Physician Co-Signing Physician Notes ATTENDING ADDENDUM : pt seen and examined care co ordinated with Trisha Skinner PA-C please refer to her documentation for detail FEVER : started to spike temp since this afternoon denies of any chills, no cough , has urinary urgency since Parker catheter d/vianey yesterday no increased pain or discomfort on surgical incision site at back UA -negative Chest Xray : no acute finding lower ext Doppler bilat : no DVT ordered for empiric abx IV rocephin check blood culture pt needs to be fever free without any Tylenol for at least 24 hrs before discharge Sophia Limon MD Subjective Patient was seen and examined in room 316. She is follow-up lumbar surgery by Dr. Toledo. She sitting up in bedside chair eating breakfast. Overall feels well this morning. She complains of itching to right side of back where tape/bandages. She tried cream last night without improvement. She denies any further rash. She also wishes she would move her bowels. She is passing gas. She denies fever, chills, sweats, and is, dizziness, chest pain, short breath, cough, nausea, vomiting, abdominal pain. She is tolerating regular diet. Review of Systems Review of Systems: All systems reviewed & are unremarkable except as noted in HPI & below Physical Exam Physical Exam: Gen: WD/WN, female, sitting up at bedside, NAD, A&O x3 HEENT: Normocephalic, atraumatic, conjunctivae moist, sclerae anicteric, mucous membranes moist. Lung: Clear to Auscultation bilaterally, no wheezes/rales/rhonchi Heart: Regular rate, regular rhythm, no murmurs, rubs, or gallops Abdomen: Soft, NT, ND +BS x 4 Extremities: No edema Skin: Warm, no rash, negative turgor. Lumbar dressing CDI, no roshan erythematous or rash noted, ZHEN drain with serosanguineous drainage Results & Data Results & Data ([facility]) Vital Signs (Past 12 Hours) Vital Signs Temp Pulse Resp BP Pulse Ox 02/13/20 07:29 37.1 C 66 16 117/69 95 02/12/20 23:28 37.2 C 75 18 117/69 95 02/12/20 22:01 76 126/71 Laboratory Results Short CBC 02/13/20 Range/Units 05:39 WBC 6.00 (4.8-10.8) K/uL Hgb 11.0 L (12.0-16.0) g/dL Hct 33.1 L (37-47) % Plt Count 166 (130-400) K/uL Medications Administered Acetaminophen (Acetaminophen 500 Mg Tab) 1,000 mg PO Q8H PRN PRN Reason: MILD Pain Scale 1,2,3 & Pre PT Stop: 03/12/20 14:23 Last Admin: 02/13/20 03:14 Dose: 1,000 mg Documented by: [id number] Admin: 02/12/20 22:16 Dose: 1,000 mg Documented by: [id number] Admin: 02/12/20 10:42 Dose: 1,000 mg Documented by: [id number] Hydrox/Mg Hydrox/Simethicone (Aluminum/Magnesium Susp 30 Ml Udc) 30 ml PO Q6H PRN PRN Reason: Dyspepsia Stop: 03/12/20 14:23 Last Admin: 02/11/20 20:03 Dose: 30 ml Documented by: [id number] Allopurinol (Allopurinol 300 Mg Tab) 150 mg PO Q48H [facility]O Stop: 03/12/20 14:59 Last Admin: 02/11/20 16:51 Dose: Not Given Documented by: [id number] Allopurinol (Allopurinol 300 Mg Tab) 300 mg PO Q48H [facility] Stop: 03/13/20 08:59 Last Admin: 02/12/20 08:47 Dose: 300 mg Documented by: [id number] Amlodipine Besylate (Amlodipine Besylate 5 Mg Tab) 5 mg PO PM [facility]O Stop: 03/12/20 20:59 Last Admin: 02/12/20 22:05 Dose: 5 mg Documented by: [id number] Admin: 02/11/20 20:13 Dose: 5 mg Documented by: [id number] Aspirin (Aspirin 81 Mg Ectab) 81 mg PO QAM [place] Stop: 03/13/20 08:59 Last Admin: 02/13/20 07:38 Dose: 81 mg Documented by: [id number] Admin: 02/12/20 08:45 Dose: 81 mg Documented by: [id number] Atenolol (Atenolol 25 Mg Tablet) 25 mg PO BID PALOMO Stop: 03/12/20 20:59 Last Admin: 02/13/20 07:38 Dose: 25 mg Documented by: [id number] Admin: 02/12/20 22:05 Dose: 25 mg Documented by: [id number] Admin: 02/12/20 08:50 Dose: 25 mg Documented by: [id number] Admin: 02/11/20 20:14 Dose: Not Given Documented by: [id number] Famotidine (Famotidine 20 Mg Tab) 20 mg PO HS PALOMO Stop: 03/12/20 20:59 Last Admin: 02/12/20 22:05 Dose: 20 mg Documented by: [id number] Admin: 02/11/20 20:14 Dose: 20 mg Documented by: [id number] Gabapentin (Gabapentin 300 Mg Cap) 300 mg PO TID [place] Stop: 03/12/20 14:44 Last Admin: 02/13/20 07:38 Dose: 300 mg Documented by: [id number] Admin: 02/12/20 22:04 Dose: 300 mg Documented by: [id number] Admin: 02/12/20 14:08 Dose: 300 mg Documented by: [id number] Admin: 02/12/20 08:46 Dose: 300 mg Documented by: [id number] Admin: 02/11/20 20:13 Dose: 300 mg Documented by: [id number] Admin: 02/11/20 15:56 Dose: 300 mg Documented by: [id number] Lactobacillus Acidophilus (Lactobacillus Acidophilus 1 Gm Pack) 1 gm PO [facility] Stop: 03/12/20 20:59 Last Admin: 02/12/20 22:05 Dose: 1 gm Documented by: [id number] Admin: 02/11/20 20:15 Dose: 1 gm Documented by: [id number] Melatonin (Melatonin 3 Mg Tab) 3 mg PO [facility] Stop: 03/12/20 20:59 Last Admin: 02/12/20 22:04 Dose: 3 mg Documented by: [id number] Admin: 02/11/20 20:18 Dose: 3 mg Documented by: [id number] Menthol (Cough Drop (Sugar Free) Wilder 24 Wilder/1 Box) 1 wilder BUCCAL PRN PRN PRN Reason: Sore Throat Stop: 03/12/20 21:43 Last Admin: 02/11/20 21:51 Dose: 1 wilder Documented by: [id number] Miscellaneous (Flunisolide 2 Sprays~Order Awaiting Action) 1 ea N/A QS [facility] Stop: 03/12/20 15:59 Last Admin: 02/13/20 07:39 Dose: Not Given Documented by: [id number] Admin: 02/13/20 00:01 Dose: Not Given Documented by: [id number] Admin: 02/12/20 15:30 Dose: Not Given Documented by: [id number] Admin: 02/12/20 08:56 Dose: Not Given Documented by: [id number] Admin: 02/11/20 23:40 Dose: Not Given Documented by: [id number] Admin: 02/11/20 15:50 Dose: Not Given Documented by: [id number] Miscellaneous (Propylene Glycol [Systane Balance] 1 Drops~Order Awaiting Action) 1 ea N/A QS [facility] Stop: 03/12/20 15:59 Last Admin: 02/13/20 07:39 Dose: Not Given Documented by: [id number] Admin: 02/13/20 00:01 Dose: Not Given Documented by: [id number] Admin: 02/12/20 15:30 Dose: Not Given Documented by: [id number] Admin: 02/12/20 08:56 Dose: Not Given Documented by: [id number] Admin: 02/11/20 23:40 Dose: Not Given Documented by: [id number] Admin: 02/11/20 15:50 Dose: Not Given Documented by: [id number] Oxycodone HCl (Oxycodone Hcl Ir 5 Mg Tab (Immediate Release)) 5 - 10 mg PO Q4H PRN PRN Reason: Moderate-Severe Pain & Pre PT Stop: 02/25/20 14:23 Last Admin: 02/13/20 07:37 Dose: 5 mg Documented by: [id number] Admin: 02/12/20 18:20 Dose: 5 mg Documented by: [id number] Admin: 02/12/20 07:12 Dose: 5 mg Documented by: [id number] Admin: 02/11/20 20:02 Dose: 5 mg Documented by: [id number] Admin: 02/11/20 15:56 Dose: 5 mg Documented by: [id number] Pantoprazole Sodium (Pantoprazole 40 Mg Tab) 40 mg PO QAM [facility] Stop: 03/13/20 08:59 Last Admin: 02/13/20 07:38 Dose: 40 mg Documented by: [id number] Admin: 02/12/20 08:47 Dose: 40 mg Documented by: [id number] Polyethylene Glycol (Polyethylene (Miralax) 17 Gm Pack) 17 gm PO Q6 [facility] Stop: 03/13/20 05:59 Last Admin: 02/13/20 06:51 Dose: 17 gm Documented by: [id number] Admin: 02/13/20 00:05 Dose: Not Given Documented by: [id number] Admin: 02/12/20 17:28 Dose: 17 gm Documented by: [id number] Admin: 02/12/20 13:17 Dose: 17 gm Documented by: [id number] Admin: 02/12/20 06:29 Dose: 17 gm Documented by: [id number] Potassium Citrate (Potassium Citrate 10 Meq Tab) 20 meq PO BID [facility] Stop: 03/12/20 20:59 Last Admin: 02/13/20 07:37 Dose: 20 meq Documented by: [id number] Admin: 02/12/20 22:04 Dose: 20 meq Documented by: [id number] Admin: 02/12/20 08:47 Dose: 20 meq Documented by: [id number] Admin: 02/11/20 20:12 Dose: 20 meq Documented by: [id number] Prednisone (Prednisone 5 Mg Tab) 7.5 mg PO Q48H [facility] Stop: 03/13/20 08:59 Last Admin: 02/12/20 08:46 Dose: 7.5 mg Documented by: [id number] Prednisone (Prednisone 5 Mg Tab) 5 mg PO Q48H [facility] Stop: 03/14/20 08:59 Last Admin: 02/13/20 07:38 Dose: 5 mg Documented by: [id number] Rosuvastatin Calcium (Rosuvastatin Calcium 10 Mg Tab) 10 mg PO PM [facility] Stop: 03/12/20 20:59 Last Admin: 02/12/20 22:05 Dose: 10 mg Documented by: [id number] Admin: 02/11/20 20:14 Dose: 10 mg Documented by: [id number] Senna/Docusate Sodium (Docusate Sodium/Senna 50/8.6mg Tab) 2 tab PO HS [facility]O Stop: 03/12/20 20:59 Last Admin: 02/12/20 22:05 Dose: 2 tab Documented by: [id number] Admin: 02/11/20 20:15 Dose: 2 tab Documented by: [id number] Discontinued Medications Acetaminophen (Acetaminophen 500 Mg Tab) 1,000 mg PO PREOP [place] Stop: 02/11/20 18:00 Last Admin: 02/11/20 09:39 Dose: 1,000 mg Documented by: [id number] Ascorbic Acid (Ascorbic Acid 500 Mg Tab) 1,000 mg PO PM [facility]O Stop: 03/12/20 20:59 Last Admin: 02/11/20 20:15 Dose: 1,000 mg Documented by: [id number] Ascorbic Acid (Ascorbic Acid 500 Mg Tab) 1,000 mg PO ONE ONE Stop: 02/12/20 15:02 Last Admin: 02/12/20 15:35 Dose: 1,000 mg Documented by: [id number] Bacitracin (Bacitracin Inj 50,000 Unit Vial) Confirm Administered Dose 50,000 units .ROUTE .STK-MED ONE Stop: 02/11/20 10:26 Last Admin: 02/11/20 12:44 Dose: 50,000 units Documented by: [id number] Bupivacaine HCl/Epinephrine Bitart (Bupivacaine/Epinephrine 0.25% 1:200,000 30 Ml Vial) Confirm Administered Dose 30 ml .ROUTE .STK-MED ONE Stop: 02/11/20 10:26 Last Admin: 02/11/20 11:21 Dose: 30 ml Documented by: [id number] Celecoxib (Celebrex 200 Mg Cap) 200 mg PO PREOP [facility] Stop: 02/11/20 18:00 Last Admin: 02/11/20 09:39 Dose: 200 mg Documented by: [id number] Cyanocobalamin (Cyanocobalamin 500 Mcg Tablet (Vitamin B-12)) 1,000 mcg PO PM [facility]OMO Stop: 03/12/20 20:59 Last Admin: 02/11/20 20:11 Dose: 1,000 mcg Documented by: [id number] Cyanocobalamin (Cyanocobalamin 500 Mcg Tablet (Vitamin B-12)) 1,000 mcg PO ONE ONE Stop: 02/12/20 15:06 Last Admin: 02/12/20 15:35 Dose: 1,000 mcg Documented by: [id number] Fentanyl Citrate (Fentanyl Citrate 100 Mcg/2 Ml Vial) 25 mcg IV Q5M PRN PRN Reason: PACU Use Only-Pain Stop: 02/11/20 18:12 Last Admin: 02/11/20 13:47 Dose: 25 mcg Documented by: [id number] Admin: 02/11/20 13:42 Dose: 25 mcg Documented by: [id number] Admin: 02/11/20 13:37 Dose: 25 mcg Documented by: [id number] Admin: 02/11/20 13:32 Dose: 25 mcg Documented by: [id number] Admin: 02/11/20 13:27 Dose: 25 mcg Documented by: [id number] Admin: 02/11/20 13:22 Dose: 25 mcg Documented by: [id number] Gabapentin (Gabapentin 300 Mg Cap) 300 mg PO PREOP [facility]O Stop: 02/11/20 18:00 Last Admin: 02/11/20 09:36 Dose: Not Given Documented by: [id number] Lactated Ringer's (Lr) 1,000 mls @ 15 mls/hr IV .Q24H [facility]O Stop: 02/12/20 05:59 Last Infusion: 02/11/20 10:52 Dose: 0 mls/hr Documented by: [id number] Admin: 02/11/20 09:40 Dose: 15 mls/hr Documented by: [id number] Cefazolin Sodium (Ancef 2000mg) 2,000 mg in 15 mls @ 3.75 mls/min IV PREOP PALOMO; Protocol Stop: 02/11/20 18:00 Last Admin: 02/11/20 10:52 Dose: 3.75 mls/min Documented by: [id number] Acetaminophen (Ofirmev) 1,000 mg in 100 mls @ 400 mls/hr IV Q8H PRN PRN Reason: MILD Pain Rating 1,2,3 Stop: 02/12/20 14:23 Last Infusion: 02/12/20 02:53 Dose: 0 mls/hr Documented by: [id number] Admin: 02/12/20 02:37 Dose: 400 mls/hr Documented by: [id number] Sodium Chloride (Nss 1000ml) 1,000 mls @ 100 mls/hr IV .Q10H [facility] Stop: 03/12/20 14:23 Last Admin: 02/12/20 05:50 Dose: Not Given Documented by: [id number] Infusion: 02/12/20 05:50 Dose: 0 mls/hr Documented by: [id number] Infusion: 02/11/20 21:29 Dose: 100 mls/hr Documented by: [id number] Admin: 02/11/20 17:38 Dose: 100 mls/hr Documented by: [id number] Cefazolin Sodium (Ancef 2000mg) 2,000 mg in 15 mls @ 3.75 mls/min IV Q8H PALOMO; Protocol Stop: 02/12/20 03:03 Last Admin: 02/12/20 03:44 Dose: 3.75 mls/min Documented by: [id number] Admin: 02/11/20 18:49 Dose: 3.75 mls/min Documented by: [id number] Magnesium Oxide (Magnesium Oxide 400 Mg Tab) 400 mg PO PM [facility]O Stop: 03/12/20 20:59 Last Admin: 02/11/20 20:12 Dose: 400 mg Documented by: [id number] Magnesium Oxide (Magnesium Oxide 400 Mg Tab) 400 mg PO ONE ONE Stop: 02/12/20 15:08 Last Admin: 02/12/20 15:36 Dose: 400 mg Documented by: [id number] Miscellaneous ( Floseal Hemostatic Matrix 10ml) 26 ml TOP ONCE ONE Stop: 02/11/20 12:46 Last Admin: 02/11/20 12:48 Dose: 26 ml Documented by: [id number] Multivitamins (Multivitamin Tab) 1 tab PO PM [facility]OMO Stop: 03/12/20 20:59 Last Admin: 02/11/20 20:14 Dose: 1 tab Documented by: [id number] Multivitamins (Multivitamin Tab) 1 tab PO ONE ONE Stop: 02/12/20 15:07 Last Admin: 02/12/20 15:36 Dose: 1 tab Documented by: [id number] Vitamin B Complex (Vitamin B Complex Tab) 1 tab PO PM [facility] Stop: 03/12/20 20:59 Last Admin: 02/11/20 20:16 Dose: 1 tab Documented by: [id number] Vitamin B Complex (Vitamin B Complex Tab) 1 tab PO ONE ONE Stop: 02/12/20 15:10 Last Admin: 02/12/20 15:36 Dose: 1 tab Documented by: [id number] Vitamin D (Cholecalciferol 1,000 Units 25 Mcg Tab) 2,000 units PO PM [facility] Stop: 03/12/20 20:59 Last Admin: 02/11/20 20:11 Dose: 2,000 units Documented by: [id number] Vitamin D (Cholecalciferol 1,000 Units 25 Mcg Tab) 2,000 units PO ONE ONE Stop: 02/12/20 15:05 Last Admin: 02/12/20 15:36 Dose: 2,000 units Documented by: [id number] Zinc Sulfate (Zinc Sulfate 220 Mg Capsule) 220 mg PO ONE ONE Stop: 02/12/20 16:16 Last Admin: 02/12/20 16:36 Dose: 220 mg Documented by: [id number]
[2020-02-13] MEDS ORDERED: predniSONE 5 MG TAB PO SCH ×2 (09:00)
--- NOTE | 2020-02-13 09:19 | Orthopedic Progress Note ---
Date of Service February 13, 2020 Assessment & Plan (1) Neurogenic claudication due to lumbar spinal stenosis: Admission and Anticipated Discharge Date Admission Date: February 11, 2020 This time we will continue physical therapy monitor ZHEN output anticipate d ischarge to rehab hopefully tomorrow. Subjective Back pain controlled leg symptoms improved. Physical Exam Physical Exam: Patient is in a chair at the bedside. Is good strength testing. Was comfortable. Results & Data ([facility]) Vital Signs (Past 12 Hours) Vital Signs Temp Pulse Resp BP Pulse Ox 02/13/20 07:29 37.1 C 66 16 117/69 95 02/12/20 23:28 37.2 C 75 18 117/69 95 02/12/20 22:01 76 126/71
[2020-02-13] MEDS: HYDROCORTISONE 1% CRM 30 GM TUBE EXT PRN ×2 (10:26→22:16)
[2020-02-13] MEDS: ZINC SULFATE 220 MG CAPSULE PO SCH (13:37)
[2020-02-13] MEDS: ASCORBIC ACID 500 MG TAB PO SCH (13:38)
[2020-02-13] MEDS: VITAMIN B COMPLEX TAB PO SCH (13:39)
[2020-02-13] MEDS: MULTIVITAMIN TAB PO SCH (13:39)
[2020-02-13] MEDS: MAGNESIUM OXIDE 400 MG TAB PO SCH (13:39)
[2020-02-13] MEDS: CHOLECALCIFEROL 1,000 UNITS 25 MCG TAB PO SCH (13:39)
[2020-02-13] MEDS: CYANOCOBALAMIN 500 MCG TABLET (VITAMIN B-12) PO SCH (13:39)
[2020-02-13] MEDS: allopurinoL 300 MG TAB PO SCH (14:20)
[2020-02-13] MEDS ORDERED: Nursing to Pharmacy Communication SCH (15:30)
--- NOTE | 2020-02-13 16:57 | XRay Report ---
XR chest 1V portable HISTORY: 79 years-old Female fever /sob acute fever with shortness of breath COMPARISON: Chest radiographs 01/08/2020 TECHNIQUE: Portable AP view of the chest FINDINGS: Moderate cardiomegaly. No pneumothorax, pleural effusion, airspace consolidation or overt pulmonary e jennifer. Mild chronic interstitial coarsening. Degenerative changes of the shoulders and spine. Loose camelia dies of the left axillary and subscapularis recess. Surgical clips project over the midline lower nec k/upper chest. IMPRESSION: Cardiomegaly without acute process. ACT 112: Negative or not required by law. The above report was generated using voice recognition software. It may contain grammatical, syntax o r spelling errors. Electronically signed by: Sb Mendiola M.D. 02/13/2020 4:55 PM
--- NOTE | 2020-02-13 17:32 | Ultrasound Report ---
BILATERAL LOWER EXTREMITY VENOUS DOPPLER HISTORY: Acute pain and swelling of the lower extremities fever, edema COMPARISON STUDY: None. FINDINGS: There is normal compressibility, flow, and augmentation within the bilateral lower extremit y deep venous systems. IMPRESSION: No DVT within the right or left lower extremity. ACT 112: Negative or not required by law. Electronically signed by: Sb Mendiola M.D. 02/13/2020 5:31 PM
[2020-02-13 18:27] LABS: Appearance Urine Clear (Clear); Bilirubin Urine Negative (Negative); Blood Urine Negative (Negative); Color Urine Yellow; Glucose Urine UA Negative (Negative); Ketones Urine Negative (Negative); Leukocyte Esterase Urine Negative (Negative); Nitrite Urine Negative (Negative); Protein Urine Negative (Negative); Specific Gravity Urine 1.006 (1.000-1.030); Urobilinogen Urine Negative (Negative)
[2020-02-13] MEDS ORDERED: cefTRIAXone SODIUM 2,000 MG in DEXTROSE 5% 50 ML IV SCH (19:00)
[2020-02-13] MEDS: DOCUSATE SODIUM/SENNA 50/8.6MG TAB PO SCH (20:40)
[2020-02-13] MEDS: AMLODIPINE BESYLATE 5 MG TAB PO SCH (22:12)
[2020-02-13] MEDS: LACTOBACILLUS ACIDOPHILUS 1 GM PACK PO SCH (22:12)
[2020-02-13] MEDS: FAMOTIDINE 20 MG TAB PO SCH (22:12)
[2020-02-13] MEDS: MELATONIN 3 MG TAB PO SCH (22:13)
[2020-02-13] MEDS: ROSUVASTATIN CALCIUM 10 MG TAB PO SCH (22:13)
[2020-02-14 06:47] LABS: Hematocrit (blood only) 34.1 % (37-47); Mean Corpuscular Hemoglobin 30.9 pg (25-34); Mean Corpuscular Hgb Conc 32.3 g/dL (32-36); Mean Corpuscular Volume 95.8 fL (80-100); Mean Platelet Volume 9.3 fL (7.4-10.4); Platelet Count 164 K/uL (130-400); RDW Standard Deviation 48.6 fL (36.4-46.3); Red Blood Count 3.56 M/uL (4.2-5.4); White Blood Count 6.62 K/uL (4.8-10.8)
[2020-02-14] MEDS: OXYCODONE HCL IR 5 MG TAB (IMMEDIATE RELEASE) PO PRN (07:50)
[2020-02-14] MEDS: HYDROCORTISONE 1% CRM 30 GM TUBE EXT PRN (07:53)
--- NOTE | 2020-02-14 08:43 | Discharge Summary ---
Date of Service February 14, 2020 Admission HPI Per Admitting Provider This is a 79-year-old female known to me that presents with chronic significant right leg pain that is been unremitting in nature. Subsequently she is here for surgical intervention. Principal Diagnosis Lumbar spinal stenosis with neurogenic claudication Discharge Data Allergies Allergy/AdvReac Type Severity Reaction Status Date / Time adhesive Allergy Intermediate Redness of Verified 02/11/20 09:08 Skin Iodinated Contrast Media Allergy Unknown HIVES Verified 02/11/20 09:08 citalopram [From Celexa] AdvReac Mild didnt feel Verified 02/11/20 09:08 well on this tramadol AdvReac Unknown WEAKNESS Verified 02/11/20 09:08 Consultations 02/11/20 14:24 Consult Case Management - Discharge Planning Routine Consult Hospitalist Routine Procedures Performed Operation Date: 01/23/20 11:25 <No data on this case meets the specified criteria> Operation Date: 02/11/20 10:05 Actual Procedures p L5-S1 Deompression Fusion, with Application of Bone Morphogenetic Protein, Osteoamp Allograft, Spinal Cord Monitoring(Not Applicable) - Magno Toledo DO s L2-L5 Hardware Removal(Not Applicable) - Magno Toledo DO Ordered Studies 02/11/20 10:05 FL fluoroscopy <1hr Routine FL lumbar spine 2-3V Routine 02/13/20 16:38 US venous doppler LE [facility] Hospital Course (1) Neurogenic claudication due to lumbar spinal stenosis: Patient underwent lumbar decompression fusion tolerated well second orthopedic. He reports pain when she is up and ambulating Yang postop day 2 postop 3 ZHEN drain decreasing bili. Pain well controlled. Subsequently discharged to rehab. Discharge orders instructions from the chart for further review. Total Time Total Time Spent Total Time Spent (In Minutes): 20 minutes Discharge Plan Discharge Items Patient Disposition: Transfer Inpatient Rehab Fac Reason For Visit: Spinal Stenosis, [place] with Neurogenic Cla Discharge Diagnosis: Lumbar spinal stenosis with neurogenic claudication Activity: As commented below Non-emergency contact: Primary Care Provider Call non-emergency contact if: you have any medication questions Follow-up/Referrals: Manuel Winters M.D. [Primary Care Provider] - Diet: Regular Addtl Attending Provider Instructions: ACTIVITY RECOMMENDATIONS: SELF CARE INSTRUCTIONS AFTER THORACIC/LUMBAR FUSIONS 1. You may walk to your tolerance. It is good exercise for your legs and back. Expect some back and intermittent leg aches and pains. 2. You may perform "counter-top" level activities (make a sandwich, celena with a project, etc.). 3. No bending or lifting of more than 10 pounds or back twisting of any nature (roll like a log when turning in bed). 4. You may ride in a car for 20-30 minutes at a time. No driving until after your first visit with your doctor. 5. Frequent changes of position and restricting sitting to 30 minutes at a time will help limit the amount of back spasms and stiffness you may experience. 6. You may discontinue the use of ambulatory aids (cane, crutches, etc.) once your strength and confidence allow. 7. You may hand painter the shower and let water strike your incision when you arrive home at least once daily. Do not take a tub bath, sit in a hot tub or go into a swimming pool until after your first recheck in the office. SPECIAL CARE INSTRUCTIONS: VERY IMPORTANT TO READ AND REVIEW A. Your surgical incision has been closed with a cosmetic suture under the skin that will dissolve in about 6 weeks. In 14 days, you can use a pair of clean scissors and cut the suture that is left outside of the skin at the ends of your incision. 1. The small skin tapes can be removed 7 days after surgery if they have not fallen off by that point. 2. You may keep the wound open to air as much as possible to promote healing after post-op day number 5 unless told otherwise by your doctor. 3. If you think the wound looks like it is becoming infected (redness or worsening drainage) and/or you are experiencing fever, chill or worsening back pain and muscle spasms, contact the office so that we may evaluate you as soon as possible. B. Complications are uncommon, but please contact us if you have any signs or symptoms of: 1. wound infection (fever higher than 102.5 degrees F, redness, separation of wound, drainage, or increasing pain from the incision) 2. blood clots in legs (pain, swelling, redness and warmth in legs) 3. urinary tract infection (fever higher than 102.5 degrees F, burning upon urination or increased frequency of urination) 4. nerve problems (inability to walk on your toes or heels, numbness, loss of bowel or bladder control) 5. any other symptoms that concern you C. Please call the office at if you have any concerns or questions about your operation or recovery. D. No smoking! Smoking drastically decreases the chance of a solid fusion. E. Do not take any anti-inflammatory medications (Indocin, Advil, Motrin, Aspirin, Naprosyn, etc.) as these may inhibit the chance of a solid fusion. Tylenol is okay to take for pain. MANAGING PAIN AFTER SPINAL SURGERY 1. Narcotic medication is intended for short-term use and will be provided for surgical pain. Surgical pain usually lasts for a period of 4-6 weeks. Narcotic medication includes Percocet, Vicodin, Darvocet, Tylenol #3 or Lortab. 2. Longer-term pain is more appropriately treated with non-narcotic medication such as Tylenol ES. 3. Muscle spasm is not appropriately treated with narcotics. Muscle relaxers such as Soma, Flexeril or Skelaxin can be used along with Tylenol ES. 4. Remember that we all live with some "aches and pains". This is not unusual or uncommon after an injury or as we get older. a. Back pain is expected and may include muscle spasms for 4 to 6 weeks after surgery. The pain should gradually improve. If the pain worsens for no apparent reason, please contact the office. b. Intermittent leg pain may also be experienced and should not be concerned about unless it worsens for no apparent reason. If so, please contact the office. 5. We will provide appropriate medication within the normal guidelines of their prescribed use. We will also be very cautious and aware of potential abuse and extended duration of patients' medication needs. a. Pain medications are for your comfort and to assist with sleep and rest so that the tissue can heal. They are not provided in order to return to normal activity and should not be used through the day. To do so or worsening pain at night can result from ongoing tissue damage and development of tolerance to the prescribed medicine. 6. Please allow 2-3 days to process refills. Prescriptions will not be mailed but must be picked up at the office. FOLLOW UP VISIT: Keep your scheduled follow-up appointment. Any questions, please call the office at . Pending Studies at Discharge: No Stand-Alone Forms: My [facility] Skilled Items Patient informed of condition?: No DNR: No Discharge Level of Care: Acute rehab Communicable Disease: No Discharge Prognosis: Improving Lines: None Urinary Catheter: No Medications and DC Order Prescriptions: New oxycodone 5 mg tablet 5 mg PO Q6H PRN (Reason: pain, severe) Qty: 30 RF: 0 Continued multivitamin Tablet 1 tab PO PM RF: 0 prednisone 10 mg Tablet 7.5 mg PO Q OTHER DAY RF: 0 ascorbic acid (vitamin C) [Vitamin C] 1,000 mg Tablet Extended Release 1,000 mg PO PM RF: 0 atenolol 25 mg Tablet 25 mg PO BID RF: 0 coenzyme Q10 [Co Q-10] 10 mg Capsule 10 mg PO BID RF: 0 cyanocobalamin (vitamin B-12) 1,000 mcg Tablet 1,000 mcg PO PM RF: 0 amlodipine [Norvasc] 5 mg Tablet 5 mg PO PM RF: 0 famotidine 20 mg Tablet 20 mg PO HS RF: 0 potassium citrate 10 mEq (1,080 mg) Tablet Extended Release 2,160 mg PO BID RF: 0 flunisolide 25 mcg (0.025 %) [place],Non-Aerosol 2 spray INTRANASAL QAM RF: 0 gabapentin 300 mg Capsule 300 mg PO TID RF: 0 allopurinol 300 mg Tablet 150 mg PO Q OTHER DAY RF: 0 allopurinol 300 mg Tablet 300 mg PO Q OTHER DAY RF: 0 zinc 50 mg Tablet 50 mg PO PM RF: 0 magnesium 250 mg Tablet 500 mg PO PM RF: 0 rosuvastatin [Crestor] 10 mg Tablet 10 mg PO PM RF: 0 omeprazole magnesium [Prilosec OTC] 20 mg Tablet,Delayed Release (Dr/Ec) 20 mg PO QAM RF: 0 vitamin B complex-folic acid [B Complex 1 (with folic acid)] 0.4 mg Tablet 1 tab PO PM RF: 0 melatonin 5 mg Tablet 5 mg PO HS RF: 0 cholecalciferol (vitamin D3) [Vitamin D3] 50 mcg (2,000 unit) Capsule 50 mcg PO PM RF: 0 Systane Balance 0.6 % Drops 1 drp OPHTHALMIC (EYE) BID PRN (Reason: Dry Eye(S)) RF: 0 PreserVision AREDS-2 [id number] Capsule 1 tab PO BID RF: 0 [place] 3-6-9 1,200 mg Capsule 1 cap PO BID RF: 0 prednisone 5 mg Tablet 5 mg PO Q OTHER DAY RF: 0 docusate sodium 100 mg Capsule 200 mg PO HS RF: 0 aspirin 81 mg Tablet 81 mg PO QAM RF: 0 polyethylene glycol 3350 [Miralax] 17 gram/dose Powder 17 g PO DAILY PRN (Reason: Constipation) RF: 0 Probiotic 15 billion cell Capsule 1 cap PO HS RF: 0 acetaminophen 500 mg Capsule 500 mg PO Q6H PRN (Reason: Pain) RF: 0 Discharge Orders: Discharge Order (Routine); Ordered 02/14/20 Ordered By: Magno Toledo Admission Data Admit Date/Time: 02/11/20 13:18 Attending Provider: Magno Toledo Admit Provider: Magno Toledo Primary Care Provider: Manuel Winters Other Providers: Sophia Limon
--- NOTE | 2020-02-14 09:11 | Hospitalist Progress Note ---
Date of Service February 14, 2020 Assessment & Plan (1) Status post lumbar surgery: Post op day# 3 S/P Instrumentation removal L2-L5 & decompression and fusion L5- S1 by Dr Toledo [id number]; ZHEN drain 690ml Pain/wound management per Ortho Activity and therapy as directed by Ortho Continue to encourage incentive spirometry DVT prophylaxis per Ortho Pt to be discharged to [facility] in [place] today (2) Postoperative fever: Likely benign, work up negative including CBC, CXR, Urine, covid-19 test, b/l lower ext venous doppler CXR did not reveal atelectasis, but continue to encourage incentive spirometry blood cultures pending, but do not expect growth - pt okay to discharge to rehab (3) Anemia: Preop hemoglobin 13.7 H&H today 11.0 and 34.1, stable Likely in setting of acute blood loss anemia due to surgery and dilutional component (4) HTN (hypertension): Control blood pressure 112/70 Continue amlodipine, atenolol (5) CAD (coronary artery disease): S/P Stent 2005 No CP Continue statin, atenolol (6) PMR (polymyalgia rheumatica): Continue prednisone daily (7) Sleep apnea: Continue CPAP HS DVT Prophylaxis SCDs per ortho Disposition per primary service Follows with Dr Manuel Winters in [place] for routine care Pt was seen and care coordinated with Dr Limon. See addendum Thank you for this consultation. We will follow the patient with you during their hospital stay. You can reach a member of the [facility] Hospitalist Team 20/12 via pager @ [phone]. Admission and Anticipated Discharge Date Admission Date: February 11, 2020 Supervising Physician Co-Signing Physician Notes ATTENDING ADDENDUM : pt seen and examined , care co-ordinated with Trisha Vazquez no fever since 6 pm yesterday no cough , no urinary symptoms UA negative , Cxray no infiltrate surgical wound well healed per Spinal ortho pt reports of feeling fine , no fatigue or weakness no indication to continue antibiotic D/C IV Rocephin stable to be discharged to rehab please refer to further documentation by Trisha Skinner PA-C for discussion of other medical issues Sophia Limon MD Subjective Patient was seen and examined in room 316. Follow-up lumbar surgery by Dr. Toledo. Yesterday evening patient spiked temp to 38.1. She complained of generalized achiness, shortness of breath and bilateral leg pain. She underwent work-up which included chest x-ray, urinalysis, COVID-19 testing, bilateral lower extremity Dopplers which all were negative. Blood cultures are pending. Fever has subsided today but temperature still mildly elevated at 37.5. She feels better than she did yesterday evening, but does complain of generalized achiness. She denies any current fever, chills, sweats, lightheadedness, dizziness, chest pain, shortness, cough, emesis, abdominal pain. She did move bowels yesterday. She did have slight nausea this morning. She is currently eating breakfast without difficulty. She is being discharged to [facility] in [place] today. Review of Systems Review of Systems: All systems reviewed & are unremarkable except as noted in HPI & below Physical Exam Physical Exam: Gen: WD/WN, female, sitting up at bedside, NAD, A&O x3 HEENT: Normocephalic, atraumatic, conjunctivae moist, sclerae anicteric, mucous membranes moist. Lung: Clear to Auscultation bilaterally, no wheezes/rales/rhonchi Heart: Regular rate, regular rhythm, no murmurs, rubs, or gallops Abdomen: Soft, NT, ND +BS x 4 Extremities: Left ankle edema otherwise no pitting edema, bilateral teds in place, negative Homans sign, lumbar dressing CDI, ZHEN drain with serosanguineous drainage Skin: Warm, no rash, negative turgor. Results & Data Results & Data ([facility]) Vital Signs (Past 12 Hours) Vital Signs Temp Pulse Resp BP Pulse Ox 02/14/20 07:31 37.5 C 77 16 112/70 93 02/13/20 23:06 37.0 C 75 18 103/64 96 02/13/20 22:08 72 118/68 Laboratory Results Short CBC 02/14/20 Range/Units 06:35 WBC 6.62 (4.8-10.8) K/uL Hgb 11.0 L (12.0-16.0) g/dL Hct 34.1 L (37-47) % Plt Count 164 (130-400) K/uL Urine 02/13/20 Range/Units 18:10 Urine Color Yellow Urine Appearance Clear (Clear) Urine pH 8.0 H (4.5-7.5) Ur Specific [place] 1.006 (1.000-1.030) Urine Protein Negative (Negative) Urine Glucose (UA) Negative (Negative) Diagnostic Findings CXR: IMPRESSION: Cardiomegaly without acute process. Venous Doppler b/l lower ext: negative Medications Administered Acetaminophen (Acetaminophen 500 Mg Tab) 1,000 mg PO Q8H PRN PRN Reason: MILD Pain Scale 1,2,3 & Pre PT Stop: 03/12/20 14:23 Last Admin: 02/13/20 16:37 Dose: 1,000 mg Documented by: [id number] Admin: 02/13/20 03:14 Dose: 1,000 mg Documented by: [id number] Admin: 02/12/20 22:16 Dose: 1,000 mg Documented by: [id number] Admin: 02/12/20 10:42 Dose: 1,000 mg Documented by: [id number] Hydrox/Mg Hydrox/Simethicone (Aluminum/Magnesium Susp 30 Ml Udc) 30 ml PO Q6H PRN PRN Reason: Dyspepsia Stop: 03/12/20 14:23 Last Admin: 02/11/20 20:03 Dose: 30 ml Documented by: [id number] Allopurinol (Allopurinol 300 Mg Tab) 150 mg PO Q48H [facility]OMO Stop: 03/12/20 14:59 Last Admin: 02/13/20 14:20 Dose: 150 mg Documented by: [id number] Admin: 02/11/20 16:51 Dose: Not Given Documented by: [id number] Allopurinol (Allopurinol 300 Mg Tab) 300 mg PO Q48H [facility] Stop: 03/13/20 08:59 Last Admin: 02/12/20 08:47 Dose: 300 mg Documented by: [id number] Amlodipine Besylate (Amlodipine Besylate 5 Mg Tab) 5 mg PO PM [facility]OMO Stop: 03/12/20 20:59 Last Admin: 02/13/20 22:12 Dose: 5 mg Documented by: [id number] Admin: 02/12/20 22:05 Dose: 5 mg Documented by: [id number] Admin: 02/11/20 20:13 Dose: 5 mg Documented by: [id number] Ascorbic Acid (Ascorbic Acid 500 Mg Tab) 1,000 mg PO DAILY@1400 [facility] Stop: 03/14/20 13:59 Last Admin: 02/13/20 13:38 Dose: 1,000 mg Documented by: [id number] Aspirin (Aspirin 81 Mg Ectab) 81 mg PO QAM [facility] Stop: 03/13/20 08:59 Last Admin: 02/13/20 07:38 Dose: 81 mg Documented by: [id number] Admin: 02/12/20 08:45 Dose: 81 mg Documented by: [id number] Atenolol (Atenolol 25 Mg Tablet) 25 mg PO BID PALOMO Stop: 03/12/20 20:59 Last Admin: 02/13/20 22:12 Dose: 25 mg Documented by: [id number] Admin: 02/13/20 07:38 Dose: 25 mg Documented by: [id number] Admin: 02/12/20 22:05 Dose: 25 mg Documented by: [id number] Admin: 02/12/20 08:50 Dose: 25 mg Documented by: [id number] Admin: 02/11/20 20:14 Dose: Not Given Documented by: [id number] Cyanocobalamin (Cyanocobalamin 500 Mcg Tablet (Vitamin B-12)) 1,000 mcg PO DAILY@1400 [facility] Stop: 03/14/20 13:59 Last Admin: 02/13/20 13:39 Dose: 1,000 mcg Documented by: [id number] Famotidine (Famotidine 20 Mg Tab) 20 mg PO HS [facility]OMO Stop: 03/12/20 20:59 Last Admin: 02/13/20 22:12 Dose: 20 mg Documented by: [id number] Admin: 02/12/20 22:05 Dose: 20 mg Documented by: [id number] Admin: 02/11/20 20:14 Dose: 20 mg Documented by: [id number] Gabapentin (Gabapentin 300 Mg Cap) 300 mg PO TID [place]O Stop: 03/12/20 14:44 Last Admin: 02/13/20 22:13 Dose: 300 mg Documented by: [id number] Admin: 02/13/20 13:38 Dose: 300 mg Documented by: [id number] Admin: 02/13/20 07:38 Dose: 300 mg Documented by: [id number] Admin: 02/12/20 22:04 Dose: 300 mg Documented by: [id number] Admin: 02/12/20 14:08 Dose: 300 mg Documented by: [id number] Admin: 02/12/20 08:46 Dose: 300 mg Documented by: [id number] Admin: 02/11/20 20:13 Dose: 300 mg Documented by: [id number] Admin: 02/11/20 15:56 Dose: 300 mg Documented by: [id number] Hydrocortisone (Hydrocortisone 1% Crm 30 Gm Tube) 1 appln EXT BID PRN PRN Reason: Itching Stop: 03/14/20 08:46 Last Admin: 02/14/20 07:53 Dose: 1 appln Documented by: [id number] Admin: 02/13/20 22:16 Dose: 1 appln Documented by: [id number] Admin: 02/13/20 10:26 Dose: 1 appln Documented by: [id number] Ceftriaxone Sodium 2,000 mg/ (Dextrose) 70 mls @ 100 mls/hr IV DAILY@1900 [facility]; Protocol Stop: 02/15/20 18:59 Last Infusion: 02/13/20 20:40 Dose: 0 mls/hr Documented by: [id number] Infusion: 02/13/20 20:00 Dose: 100 mls/hr Documented by: [id number] Infusion: 02/13/20 19:22 Dose: 0 mls/hr Documented by: [id number] Admin: 02/13/20 19:19 Dose: 100 mls/hr Documented by: [id number] Lactobacillus Acidophilus (Lactobacillus Acidophilus 1 Gm Pack) 1 gm PO [facility] Stop: 03/12/20 20:59 Last Admin: 02/13/20 22:12 Dose: 1 gm Documented by: [id number] Admin: 02/12/20 22:05 Dose: 1 gm Documented by: [id number] Admin: 02/11/20 20:15 Dose: 1 gm Documented by: [id number] Magnesium Oxide (Magnesium Oxide 400 Mg Tab) 400 mg PO DAILY@1400 [facility] Stop: 03/14/20 13:59 Last Admin: 02/13/20 13:39 Dose: 400 mg Documented by: [id number] Melatonin (Melatonin 3 Mg Tab) 3 mg PO [facility] Stop: 03/12/20 20:59 Last Admin: 02/13/20 22:13 Dose: 3 mg Documented by: [id number] Admin: 02/12/20 22:04 Dose: 3 mg Documented by: [id number] Admin: 02/11/20 20:18 Dose: 3 mg Documented by: [id number] Menthol (Cough Drop (Sugar Free) Wilder 24 Wilder/1 Box) 1 wilder BUCCAL PRN PRN PRN Reason: Sore Throat Stop: 03/12/20 21:43 Last Admin: 02/11/20 21:51 Dose: 1 wilder Documented by: [id number] Miscellaneous (Flunisolide 2 Sprays~Order Awaiting Action) 1 ea N/A QS [facility]O Stop: 03/12/20 15:59 Last Admin: 02/14/20 07:52 Dose: Not Given Documented by: [id number] Admin: 02/13/20 23:41 Dose: Not Given Documented by: [id number] Admin: 02/13/20 16:15 Dose: Not Given Documented by: [id number] Admin: 02/13/20 07:39 Dose: Not Given Documented by: [id number] Admin: 02/13/20 00:01 Dose: Not Given Documented by: [id number] Admin: 02/12/20 15:30 Dose: Not Given Documented by: [id number] Admin: 02/12/20 08:56 Dose: Not Given Documented by: [id number] Admin: 02/11/20 23:40 Dose: Not Given Documented by: [id number] Admin: 02/11/20 15:50 Dose: Not Given Documented by: [id number] Miscellaneous (Propylene Glycol [Systane Balance] 1 Drops~Order Awaiting Action) 1 ea N/A QS [facility] Stop: 03/12/20 15:59 Last Admin: 02/14/20 07:52 Dose: Not Given Documented by: [id number] Admin: 02/13/20 23:41 Dose: Not Given Documented by: [id number] Admin: 02/13/20 16:16 Dose: Not Given Documented by: [id number] Admin: 02/13/20 07:39 Dose: Not Given Documented by: [id number] Admin: 02/13/20 00:01 Dose: Not Given Documented by: [id number] Admin: 02/12/20 15:30 Dose: Not Given Documented by: [id number] Admin: 02/12/20 08:56 Dose: Not Given Documented by: [id number] Admin: 02/11/20 23:40 Dose: Not Given Documented by: [id number] Admin: 02/11/20 15:50 Dose: Not Given Documented by: [id number] Multivitamins (Multivitamin Tab) 1 tab PO DAILY@1400 [facility] Stop: 03/14/20 13:59 Last Admin: 02/13/20 13:39 Dose: 1 tab Documented by: [id number] Oxycodone HCl (Oxycodone Hcl Ir 5 Mg Tab (Immediate Release)) 5 - 10 mg PO Q4H PRN PRN Reason: Moderate-Severe Pain & Pre PT Stop: 02/25/20 14:23 Last Admin: 02/14/20 07:50 Dose: 5 mg Documented by: [id number] Admin: 02/13/20 19:25 Dose: 5 mg Documented by: [id number] Admin: 02/13/20 07:37 Dose: 5 mg Documented by: [id number] Admin: 02/12/20 18:20 Dose: 5 mg Documented by: [id number] Admin: 02/12/20 07:12 Dose: 5 mg Documented by: [id number] Admin: 02/11/20 20:02 Dose: 5 mg Documented by: [id number] Admin: 02/11/20 15:56 Dose: 5 mg Documented by: [id number] Pantoprazole Sodium (Pantoprazole 40 Mg Tab) 40 mg PO QAM [facility] Stop: 03/13/20 08:59 Last Admin: 02/13/20 07:38 Dose: 40 mg Documented by: [id number] Admin: 02/12/20 08:47 Dose: 40 mg Documented by: [id number] Potassium Citrate (Potassium Citrate 10 Meq Tab) 20 meq PO BID [facility]O Stop: 03/12/20 20:59 Last Admin: 02/13/20 22:13 Dose: 20 meq Documented by: [id number] Admin: 02/13/20 07:37 Dose: 20 meq Documented by: [id number] Admin: 02/12/20 22:04 Dose: 20 meq Documented by: [id number] Admin: 02/12/20 08:47 Dose: 20 meq Documented by: [id number] Admin: 02/11/20 20:12 Dose: 20 meq Documented by: [id number] Prednisone (Prednisone 5 Mg Tab) 7.5 mg PO Q48H [facility] Stop: 03/13/20 08:59 Last Admin: 02/12/20 08:46 Dose: 7.5 mg Documented by: [id number] Prednisone (Prednisone 5 Mg Tab) 5 mg PO Q48H [facility] Stop: 03/14/20 08:59 Last Admin: 02/13/20 07:38 Dose: 5 mg Documented by: [id number] Rosuvastatin Calcium (Rosuvastatin Calcium 10 Mg Tab) 10 mg PO PM [facility] Stop: 03/12/20 20:59 Last Admin: 02/13/20 22:13 Dose: 10 mg Documented by: [id number] Admin: 02/12/20 22:05 Dose: 10 mg Documented by: [id number] Admin: 02/11/20 20:14 Dose: 10 mg Documented by: [id number] Senna/Docusate Sodium (Docusate Sodium/Senna 50/8.6mg Tab) 2 tab PO HS [facility]O Stop: 03/12/20 20:59 Last Admin: 02/13/20 20:40 Dose: Not Given Documented by: [id number] Admin: 02/12/20 22:05 Dose: 2 tab Documented by: [id number] Admin: 02/11/20 20:15 Dose: 2 tab Documented by: [id number] Vitamin B Complex (Vitamin B Complex Tab) 1 tab PO DAILY@1400 [facility] Stop: 03/14/20 13:59 Last Admin: 02/13/20 13:39 Dose: 1 tab Documented by: [id number] Vitamin D (Cholecalciferol 1,000 Units 25 Mcg Tab) 2,000 units PO DAILY@1400 [facility] Stop: 03/14/20 13:59 Last Admin: 02/13/20 13:39 Dose: 2,000 units Documented by: [id number] Zinc Sulfate (Zinc Sulfate 220 Mg Capsule) 220 mg PO DAILY@1400 [facility] Stop: 03/14/20 13:59 Last Admin: 02/13/20 13:37 Dose: 220 mg Documented by: [id number] Discontinued Medications Acetaminophen (Acetaminophen 500 Mg Tab) 1,000 mg PO PREOP [place] Stop: 02/11/20 18:00 Last Admin: 02/11/20 09:39 Dose: 1,000 mg Documented by: [id number] Ascorbic Acid (Ascorbic Acid 500 Mg Tab) 1,000 mg PO PM [facility] Stop: 03/12/20 20:59 Last Admin: 02/11/20 20:15 Dose: 1,000 mg Documented by: [id number] Ascorbic Acid (Ascorbic Acid 500 Mg Tab) 1,000 mg PO ONE ONE Stop: 02/12/20 15:02 Last Admin: 02/12/20 15:35 Dose: 1,000 mg Documented by: [id number] Bacitracin (Bacitracin Inj 50,000 Unit Vial) Confirm Administered Dose 50,000 units .ROUTE .STK-MED ONE Stop: 02/11/20 10:26 Last Admin: 02/11/20 12:44 Dose: 50,000 units Documented by: [id number] Bupivacaine HCl/Epinephrine Bitart (Bupivacaine/Epinephrine 0.25% 1:200,000 30 Ml Vial) Confirm Administered Dose 30 ml .ROUTE .STK-MED ONE Stop: 02/11/20 10:26 Last Admin: 02/11/20 11:21 Dose: 30 ml Documented by: [id number] Celecoxib (Celebrex 200 Mg Cap) 200 mg PO PREOP [place] Stop: 02/11/20 18:00 Last Admin: 02/11/20 09:39 Dose: 200 mg Documented by: [id number] Cyanocobalamin (Cyanocobalamin 500 Mcg Tablet (Vitamin B-12)) 1,000 mcg PO PM [facility] Stop: 03/12/20 20:59 Last Admin: 02/11/20 20:11 Dose: 1,000 mcg Documented by: [id number] Cyanocobalamin (Cyanocobalamin 500 Mcg Tablet (Vitamin B-12)) 1,000 mcg PO ONE ONE Stop: 02/12/20 15:06 Last Admin: 02/12/20 15:35 Dose: 1,000 mcg Documented by: [id number] Fentanyl Citrate (Fentanyl Citrate 100 Mcg/2 Ml Vial) 25 mcg IV Q5M PRN PRN Reason: PACU Use Only-Pain Stop: 02/11/20 18:12 Last Admin: 02/11/20 13:47 Dose: 25 mcg Documented by: [id number] Admin: 02/11/20 13:42 Dose: 25 mcg Documented by: [id number] Admin: 02/11/20 13:37 Dose: 25 mcg Documented by: [id number] Admin: 02/11/20 13:32 Dose: 25 mcg Documented by: [id number] Admin: 02/11/20 13:27 Dose: 25 mcg Documented by: [id number] Admin: 02/11/20 13:22 Dose: 25 mcg Documented by: [id number] Gabapentin (Gabapentin 300 Mg Cap) 300 mg PO PREOP [place] Stop: 02/11/20 18:00 Last Admin: 02/11/20 09:36 Dose: Not Given Documented by: [id number] Lactated Ringer's (Lr) 1,000 mls @ 15 mls/hr IV .Q24H [facility] Stop: 02/12/20 05:59 Last Infusion: 02/11/20 10:52 Dose: 0 mls/hr Documented by: [id number] Admin: 02/11/20 09:40 Dose: 15 mls/hr Documented by: [id number] Cefazolin Sodium (Ancef 2000mg) 2,000 mg in 15 mls @ 3.75 mls/min IV PREOP [facility]; Protocol Stop: 02/11/20 18:00 Last Admin: 02/11/20 10:52 Dose: 3.75 mls/min Documented by: [id number] Acetaminophen ([facility]) 1,000 mg in 100 mls @ 400 mls/hr IV Q8H PRN PRN Reason: MILD Pain Rating 1,2,3 Stop: 02/12/20 14:23 Last Infusion: 02/12/20 02:53 Dose: 0 mls/hr Documented by: [id number] Admin: 02/12/20 02:37 Dose: 400 mls/hr Documented by: [id number] Sodium Chloride (Nss 1000ml) 1,000 mls @ 100 mls/hr IV .Q10H [facility]OLMO Stop: 03/12/20 14:23 Last Admin: 02/12/20 05:50 Dose: Not Given Documented by: [id number] Infusion: 02/12/20 05:50 Dose: 0 mls/hr Documented by: [id number] Infusion: 02/11/20 21:29 Dose: 100 mls/hr Documented by: [id number] Admin: 02/11/20 17:38 Dose: 100 mls/hr Documented by: [id number] Cefazolin Sodium (Ancef 2000mg) 2,000 mg in 15 mls @ 3.75 mls/min IV Q8H [facility]; Protocol Stop: 02/12/20 03:03 Last Admin: 02/12/20 03:44 Dose: 3.75 mls/min Documented by: [id number] Admin: 02/11/20 18:49 Dose: 3.75 mls/min Documented by: [id number] Magnesium Oxide (Magnesium Oxide 400 Mg Tab) 400 mg PO PM [facility] Stop: 03/12/20 20:59 Last Admin: 02/11/20 20:12 Dose: 400 mg Documented by: [id number] Magnesium Oxide (Magnesium Oxide 400 Mg Tab) 400 mg PO ONE ONE Stop: 02/12/20 15:08 Last Admin: 02/12/20 15:36 Dose: 400 mg Documented by: [id number] Miscellaneous ( Floseal Hemostatic Matrix 10ml) 26 ml TOP ONCE ONE Stop: 02/11/20 12:46 Last Admin: 02/11/20 12:48 Dose: 26 ml Documented by: [id number] Multivitamins (Multivitamin Tab) 1 tab PO PM [facility] Stop: 03/12/20 20:59 Last Admin: 02/11/20 20:14 Dose: 1 tab Documented by: [id number] Multivitamins (Multivitamin Tab) 1 tab PO ONE ONE Stop: 02/12/20 15:07 Last Admin: 02/12/20 15:36 Dose: 1 tab Documented by: [id number] Polyethylene Glycol (Polyethylene (Miralax) 17 Gm Pack) 17 gm PO Q6 [facility] Stop: 03/13/20 05:59 Last Admin: 02/13/20 11:59 Dose: Not Given Documented by: [id number] Admin: 02/13/20 06:51 Dose: 17 gm Documented by: [id number] Admin: 02/13/20 00:05 Dose: Not Given Documented by: [id number] Admin: 02/12/20 17:28 Dose: 17 gm Documented by: [id number] Admin: 02/12/20 13:17 Dose: 17 gm Documented by: [id number] Admin: 02/12/20 06:29 Dose: 17 gm Documented by: [id number] Vitamin B Complex (Vitamin B Complex Tab) 1 tab PO PM [facility] Stop: 03/12/20 20:59 Last Admin: 02/11/20 20:16 Dose: 1 tab Documented by: [id number] Vitamin B Complex (Vitamin B Complex Tab) 1 tab PO ONE ONE Stop: 02/12/20 15:10 Last Admin: 02/12/20 15:36 Dose: 1 tab Documented by: [id number] Vitamin D (Cholecalciferol 1,000 Units 25 Mcg Tab) 2,000 units PO PM [facility] Stop: 03/12/20 20:59 Last Admin: 02/11/20 20:11 Dose: 2,000 units Documented by: [id number] Vitamin D (Cholecalciferol 1,000 Units 25 Mcg Tab) 2,000 units PO ONE ONE Stop: 02/12/20 15:05 Last Admin: 02/12/20 15:36 Dose: 2,000 units Documented by: [id number] Zinc Sulfate (Zinc Sulfate 220 Mg Capsule) 220 mg PO ONE ONE Stop: 02/12/20 16:16 Last Admin: 02/12/20 16:36 Dose: 220 mg Documented by: [id number]
[2020-02-14] MEDS: ASPIRIN 81 MG ECTAB PO SCH (09:17)
[2020-02-14] MEDS: predniSONE 5 MG TAB PO SCH (09:17)
[2020-02-14] MEDS: ATENOLOL 25 MG TABLET PO SCH (09:17)
[2020-02-14] MEDS: PANTOprazole 40 MG TAB PO SCH (09:17)
[2020-02-14] MEDS: GABAPENTIN 300 MG CAP PO SCH ×2 (09:18→12:45)
[2020-02-14] MEDS: POTASSIUM CITRATE 10 MEQ TAB PO SCH (09:18)
[2020-02-14] MEDS: allopurinoL 300 MG TAB PO SCH (09:19)
[2020-02-14] MEDS: ASCORBIC ACID 500 MG TAB PO SCH (12:44)
[2020-02-14] MEDS: ZINC SULFATE 220 MG CAPSULE PO SCH (12:44)
[2020-02-14] MEDS: VITAMIN B COMPLEX TAB PO SCH (12:44)
[2020-02-14] MEDS: MAGNESIUM OXIDE 400 MG TAB PO SCH (12:45)
[2020-02-14] MEDS: CHOLECALCIFEROL 1,000 UNITS 25 MCG TAB PO SCH (12:45)
[2020-02-14] MEDS: MULTIVITAMIN TAB PO SCH (12:45)
[2020-02-14] MEDS: CYANOCOBALAMIN 500 MCG TABLET (VITAMIN B-12) PO SCH (12:45)
[2020-02-14] MEDS: ACETAMINOPHEN 500 MG TAB PO PRN (15:03)
== END 2020-02-14 15:36 | DRG 454 ==
LOC: ASU 08:37 → EDSTATUS 12:25 → 3E 13:18